=== PATIENT | male | born 1970 | race Caucasian/White ===

== ENCOUNTER 2020-09-14 08:07 | Outpatient (REF) | payer OTHER, SELFPAY ==
[2020-09-14 10:53] LABS: MANUAL DIFF FLAG NO
[2020-09-14 10:57] LABS: Basophils Percent Auto 0.4 % (0-2); Eosinophils Absolute Auto 0.1 X10*3/uL (0.0-0.4); Hematocrit 45.3 % (42-52); Hemoglobin 15.6 g/dl (14.0-18.0); Imm Gran Abs Auto 0.02 X10*3/uL (0.00-0.03); Imm Gran Pct Auto 0.3 % (0.0-0.4); Lymphocytes Absolute Auto 1.8 X10*3/uL (1.2-4.9); Lymphocytes Percent Auto 24.6 % (20-40); Mean Corpuscular HGB Conc 34.4 g/dl (31.0-36.0); Mean Corpuscular Hemoglobin 30.1 pg (27.0-33.0); Mean Corpuscular Volume 87.5 fL (80-98); Monocytes Absolute Auto 0.6 X10*3/uL (0.1-1.2); Monocytes Percent Auto 8.3 % (2-11); Neutrophils Absolute Auto 4.7 X10*3/uL (2.0-8.3); Neutrophils Percent Auto 65.4 % (45-73); Platelet Count 146 X10*3/uL (160-400); Red Blood Count 5.18 X10*6/uL (4.60-5.80); Red Cell Distribution Width 12.4 % (11.0-16.0); White Blood Count 7.1 X10*3/uL (4.8-10.8)
[2020-09-14 11:39] LABS: Alanine Aminotransferase 27 U/L (0-40); Albumin Level 4.5 g/dL (3.5-5.0); Alkaline Phosphatase 58 U/L (39-117); Anion Gap 13 (12-20); Aspartate Amino Transferase 21 U/L (5-37); Bilirubin Total 0.6 mg/dL (0.0-1.0); Blood Urea Nitrogen 12 mg/dL (9-16); Calcium 9.5 mg/dL (8.4-10.2); Carbon Dioxide 29 mmol/L (22-29); Chloride 105 mmol/L (96-108); Cholesterol 223 mg/dL; Estimated Glomerular Filt Rate > 60; Glucose Random 95 mg/dL (60-115); HDL Cholesterol 43 mg/dL; LDL Cholesterol Calculated 137 mg/dl; Potassium 4.4 mmol/L (3.3-5.1); Sodium 143 mmol/L (135-145); Total Protein 7.2 g/dL (6.5-8.0); Triglycerides 216 mg/dL
[2020-09-14 11:53] LABS: Thyroid Stimulating Hormone 3.73 uIU/mL (0.32-4.0)
[2020-09-14 12:22] LABS: Folate 8.8 ng/mL (> or = 4.0); Vitamin B12 551 pg/mL (200-900)
== END 2020-09-14 08:08 | disposition home or self-care (01) ==
LOC: HO.WFDLDS 08:07
PROVIDERS: PCP Internal Medicine; Visit Provider Internal Medicine
DX: E78.00 Pure hypercholesterolemia, unspecified (principal)
CPT/HCPCS: 36415; 80053; 80061; 82607; 82746; 84439; 84443; 85025

== ENCOUNTER 2020-10-10 18:20 | Emergency (ER) | payer OTHER, SELFPAY ==
[2020-10-10 19:21] VITALS: BP 133/86; PULSE 67; RESP 18; TEMP 36.1; O2SAT 100; BMI 25.8
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
== END 2020-10-10 20:54 | disposition home or self-care (01) ==
PROVIDERS: Emergency Provider Emergency Medicine Emergency Medical Services; PCP Internal Medicine
DX: S13.4XXA Sprain of ligaments of cervical spine, initial encounter (principal); S39.012A Strain of muscle, fascia and tendon of lower back, initial encounter; M54.2 Cervicalgia; X58.XXXA Exposure to other specified factors, initial encounter; Y93.9 Activity, unspecified; Y92.410 Unspecified street and highway as the place of occurrence of the external cause; Y99.9 Unspecified external cause status; Z79.899 Other long term (current) drug therapy
CPT/HCPCS: 99284

== ENCOUNTER 2020-12-18 09:00 | Outpatient (RCR) | payer OTHER, SELFPAY | END 2021-09-13 15:04 | disposition home or self-care (01) | LOC: HO.PTWFD 09:00 | PROVIDERS: PCP Internal Medicine; Visit Provider Internal Medicine | DX: M54.9 Dorsalgia, unspecified (principal) | CPT/HCPCS: 97110; 97140; 97161; 97530; 97535 ==

== ENCOUNTER 2021-01-15 11:43 | Emergency (ER) | payer OTHER, SELFPAY ==
[2021-01-15 12:08] VITALS: BP 123/78; PULSE 76; RESP 16; TEMP 37.1; O2SAT 97; BMI 23.3
--- NOTE | 2021-01-15 14:27 | ED.URI ---
HPI - URI/Sore Throat General Chief Complaint: Upper Respiratory Symptoms Stated Complaint: SINUS Time Seen by Provider: 01/15/21 14:21 Source: patient Mode of arrival: ambulatory Limitations: no limitations History of Present Illness HPI Narrative: vaccinated MD elicited complaint: rhinorrhea and nasal congestion Onset (ago): day(s) (3) Consistency: constant Severity: mild Description of mucous: clear Able to tolerate fluids by mouth: Yes Exacerbating factors: nothing Relieving factors: nothing Associated symptoms: denies other symptoms Treatments prior to arrival: none Related Data Previous Rx's Medication Instructions Recorded cyclobenzaprine 10 mg tablet 10 mg PO TID PRN #10 tab 10/10/20 ibuprofen 600 mg tablet 600 mg PO Q8H PRN #20 tab 10/10/20 lidocaine 5 % topical patch 1 patch TOPICAL DAILY #15 ea 10/10/20 (Lidoderm) fluticasone propionate 50 1 spray INTRANASAL DAILY PRN #16 g 01/15/21 mcg/actuation nasal spray,suspension Allergies Allergy/AdvReac Type Severity Reaction Status Date / Time penicillin G Allergy Unknown rash Verified 10/30/20 10:54 Review of Systems Review of Systems: Constitutional : No Fever, No Chills ENT/Mouth : No sore throat, pos Rhinorrhea Eyes: No Eye Pain, No Swelling, No Redness Cardiovascular : No Chest Pain, No SOB Respiratory : No Cough, No Sputum, No Wheezing Gastrointestinal : No Nausea, No Vomiting Genitourinary : No Dysuria, No Urinary Frequency, No Hematuria, Musculoskeletal : No joint pain, No Myalgias, No Joint Swelling Skin : No Skin Lesions, No rash PMFSH Past Medical History Attestation statement: The following information was validated with the patient. Medical History Asthma Hypercholesterolemia Overweight (BMI 25.0-29.9) Spondylolisthesis at L5-S1 level Thrombocytopenia Surgical History Hx of appendectomy Social History Social History Alcohol intake: former Patient Tobacco Use Status: Former Tobacco user Tobacco use type: Cigarette Second Hand Smoke Exposure: No Advance Directives: No Advance Directives Information Provided: No Physical Exam Vital Signs: Vital Signs: Last Vital Signs Temp 98.8 F 09/06/21 12:08 Pulse 76 01/15/21 12:08 Resp 16 01/15/21 12:08 BP 123/78 01/15/21 12:08 Pulse Ox 97 01/15/21 12:08 Body Mass Index 23.3 Appearance: Alert. Oriented X3. No acute distress. Eyes: Pupils equal, round and reactive to light. ENT: Pharynx normal. Neck: Normal inspection. Neck supple. CVS: Normal heart rate and rhythm. Pulses normal. Respiratory: No respiratory distress. Breath sounds normal. Abdomen: Soft and nontender. Skin: Skin warm and dry. Normal skin color. Normal skin turgor. Extremities: No lower extremity edema. No calf ttp Neuro: Oriented X 3. No motor deficit. No sensory deficit. MDM - URI/Sore Throat MDM Narrative Medical decision making narrative: 50 yo male with URI symptoms and he is vaccinated - not toxic, clear lungs could be allergies vs COVID will test and send home will call if positive Discharge Plan Discharge Clinical Impression: Upper respiratory infection Patient Disposition: Home, Self-Care Instructions: Upper Respiratory Infection (ED) Additional Instructions: return to ED for any worsening symptoms or concerns will call you if COVID is positive Prescriptions: New fluticasone propionate 50 mcg/actuation spray,suspension 1 spray intranasal DAILY PRN (Reason: allergy symptoms) Qty: 16 RF: 0 No Action cyclobenzaprine 10 mg tablet 10 mg PO TID PRN (Reason: muscle spasm) Qty: 10 RF: 0 lidocaine [Lidoderm] 5 % adhesive patch,medicated 1 patch topical DAILY Qty: 15 RF: 0 ibuprofen 600 mg tablet 600 mg PO Q8H PRN (Reason: pain) Qty: 20 RF: 0 Stand Alone Forms: Work/School Release
[2021-01-15 14:55] LABS: COVID-19 Test Negative (Negative); IDNOW Serial# 55D5AD1C
== END 2021-01-15 14:52 | disposition home or self-care (01) ==
PROVIDERS: Emergency Provider Emergency Medicine; PCP Internal Medicine
DX: J06.9 Acute upper respiratory infection, unspecified (principal); Z20.822 Contact with and (suspected) exposure to COVID-19
CPT/HCPCS: 36415; 87635; 99283

== ENCOUNTER 2021-02-26 10:19 | Outpatient (REF) | payer OTHER, SELFPAY ==
--- NOTE | ~2021-02-26 | XR_ITS ---
EXAMINATION: XR CHEST CLINICAL INFORMATION: Unspecified asthma. COMPARISON: Chest radiographs dated 02/28/2009. TECHNIQUE: 2 views of the chest were obtained. FINDINGS: The lungs are clear. The heart and mediastinal structures are unremarkable. XR/XR chest 2V IMPRESSION: No acute cardiopulmonary process.
== END 2021-02-26 10:20 | disposition home or self-care (01) ==
LOC: HO.XRAY 10:19
PROVIDERS: PCP Internal Medicine; Visit Provider Internal Medicine
DX: J45.909 Unspecified asthma, uncomplicated (principal)
CPT/HCPCS: 71046

== ENCOUNTER 2021-03-19 08:00 | Outpatient (RCR) | payer OTHER, SELFPAY | END 2021-05-28 09:37 | disposition home or self-care (01) | LOC: HO.PTWFD 08:00 | PROVIDERS: Visit Provider Internal Medicine | DX: M54.2 Cervicalgia (principal) | CPT/HCPCS: 97110; 97161; 97535 ==

== ENCOUNTER 2021-04-30 14:06 | Outpatient (REF) | payer OTHER, SELFPAY ==
[2021-04-30 15:40] LABS: Influenza A PCR NEGATIVE (Negative); Influenza B PCR NEGATIVE (Negative); Resp Syncy Virus RNA Qual PCR NEGATIVE (Negative); SARS COV2 PCR INHOUSE POSITIVE (Negative)
== END 2021-04-30 14:07 | disposition home or self-care (01) ==
LOC: HO.LNP 14:06
PROVIDERS: Visit Provider Family Medicine
DX: R09.89 Other specified symptoms and signs involving the circulatory and respiratory systems (principal); Z20.822 Contact with and (suspected) exposure to COVID-19
CPT/HCPCS: 0241U

== ENCOUNTER 2022-06-11 12:23 | Outpatient (REF) | payer OTHER, SELFPAY ==
[2022-06-11 13:57] LABS: Appearance Urine Clear; Color Urine Yellow; Glucose Urine UA Negative (Negative); Leukocyte Esterase Urine Negative (Negative); Nitrite Urine Negative (Negative); Specific Gravity - Urine 1.025 (1.005-1.025); Urine Blood Negative (Negative); Urine Ketones Negative (Negative); Urine Protein Negative (Neg-Trace)
[2022-06-11 13:58] LABS: MANUAL DIFF FLAG NO
[2022-06-11 14:05] LABS: Basophils Percent Auto 0.6 % (0-2); Eosinophils Absolute Auto 0.1 X10*3/uL (0.0-0.4); Hematocrit 42.3 % (42.0-52.0); Hemoglobin 14.7 g/dl (14.0-18.0); Imm Gran Abs Auto 0.02 X10*3/uL (0.00-0.03); Imm Gran Pct Auto 0.3 % (0.0-0.4); Lymphocytes Absolute Auto 1.8 X10*3/uL (1.2-4.9); Lymphocytes Percent Auto 24.4 % (20-40); Mean Corpuscular HGB Conc 34.8 g/dl (31.0-36.0); Mean Corpuscular Hemoglobin 29.6 pg (27.0-33.0); Mean Corpuscular Volume 85.1 fL (80.0-98.0); Mean Platelet Volume 11.5 fL (9.4-12.4); Monocytes Absolute Auto 0.4 X10*3/uL (0.1-1.2); Monocytes Percent Auto 5.3 % (2-11); Neutrophils Absolute Auto 4.9 x10*3/uL (2.0-8.3); Neutrophils Percent Auto 68.4 % (45-73); Platelet Count 158 X10*3/uL (160-400); Red Blood Count 4.97 X10*6/uL (4.60-5.80); White Blood Count 7.2 X10*3/uL (4.8-10.8)
[2022-06-11 14:33] LABS: Alanine Aminotransferase 35 U/L (0-40); Albumin Level 4.2 g/dL (3.5-5.0); Alkaline Phosphatase 59 U/L (39-117); Anion Gap 10 (12-20); Aspartate Amino Transferase 26 U/L (5-37); Bilirubin Total 0.8 mg/dL (0.0-1.0); Blood Urea Nitrogen 15 mg/dL (9-16); Calcium 9.3 mg/dL (8.4-10.2); Carbon Dioxide 28 mmol/L (22-29); Chloride 108 mmol/L (96-108); Cholesterol 172 mg/dL; Estimated Glomerular Filt Rate > 60; Glucose Random 101 mg/dL (60-115); HDL Cholesterol 35 mg/dL; LDL Cholesterol Calculated 104 mg/dl; Potassium 4.6 mmol/L (3.3-5.1); Sodium 141 mmol/L (135-145); Total Protein 6.7 g/dL (6.5-8.0); Triglycerides 166 mg/dL
[2022-06-11 15:03] LABS: Folate 8.7 ng/mL (> or = 4.0); Free T4 (Free Thyroxine) 0.72 ng/dL (0.71-1.85); Thyroid Stimulating Hormone 2.28 uIU/mL (0.32-4.0); Vitamin B12 628 pg/mL (200-900)
== END 2022-06-11 12:24 | disposition home or self-care (01) ==
LOC: HO.WFDLDS 12:23
PROVIDERS: Visit Provider Internal Medicine
DX: E78.00 Pure hypercholesterolemia, unspecified (principal); M43.17 Spondylolisthesis, lumbosacral region
CPT/HCPCS: 36415; 80053; 80061; 81003; 82607; 82746; 84153; 84439; 84443; 85025

== ENCOUNTER 2023-01-24 15:22 | Outpatient (AMB) | payer OTHER, SELFPAY ==
[2023-01-24 15:24] VITALS: BP 124/76; PULSE 75; O2SAT 98; BMI 27.0
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
== END 2023-01-24 16:07 | disposition home or self-care (01) ==
PROVIDERS: PCP Internal Medicine; Visit Provider Internal Medicine
DX: M43.17 Spondylolisthesis, lumbosacral region (principal); M19.019 Primary osteoarthritis, unspecified shoulder; F32.9 Major depressive disorder, single episode, unspecified; E66.3 Overweight; E78.00 Pure hypercholesterolemia, unspecified
CPT/HCPCS: 99214

== ENCOUNTER 2023-05-16 14:28 | Outpatient (AMB) | payer OTHER, SELFPAY ==
--- NOTE | 2023-05-16 14:28 | MHC.PC.OV ---
Intake Visit Reasons: Pos. COVID Allergies penicillin G Allergy (Unknown, Verified 05/16/23 14:29) rash Medication List - Last Reconciled 05/16/23 by Víctor Willingham MD albuterol sulfate 90 mcg/actuation (ProAir HFA) 2 puffs inhalation QID PRN cyclobenzaprine 10 mg PO Q12H PRN duloxetine 30 mg PO DAILY fluticasone propionate 50 mcg/actuation 1 spray intranasal DAILY PRN gabapentin 100 mg PO BEDTIME ibuprofen 600 mg PO Q8H PRN lidocaine 5% (Lidoderm) 1 patch topical DAILY nirmatrelvir-ritonavir 300 mg (150 mg x 2)-100 mg (Paxlovid) take TWO 150 mg tablets of nirmatrelvir with ONE 100 mg tablet of ritonavir twice daily for 5 days PO Tobacco use date assessed: 05/16/23 Dental Screening Dental Screen Date: 05/16/23 Did you have a dental visit in the last 12 months?: Yes Did you have a dental problem in the last 6 months where you did not have access to dental care?: No Was dental information given to patient?: Patient has dentist HPI Pos. COVID HPI Details 53-year-old overweight male with hypercholesterolemia history of depression glenohumeral arthritis chronic low back pain calling in for recent COVID-19 infection., myalgia, HAchills mild , sore throat, coughing PFSH Medical History Overweight (BMI 25.0-29.9) Asthma Spondylolisthesis at L5-S1 level Thrombocytopenia Hypercholesterolemia Surgical History Hx of appendectomy Family History Father Substance use disorder Social History Housing: Apartment Alcohol intake: former Patient Tobacco Use Status: Former Tobacco user Tobacco use type: Cigarette e-Cigarette/Vaping Use: Never Used Second Hand Smoke Exposure: No service: No Current occupational status: employed Current occupational exposures/hazards: No Cognitive needs: No Hearing needs: No Vision needs: No Questionnaire PHQ-9 Over the last 2 weeks, how often have you been bothered by any of the following problems? 1. Little interest or pleasure in doing things: not at all 2. Feeling down, depressed, or hopeless: not at all 3. Trouble falling or staying asleep, or sleeping too much: not at all 4. Feeling tired or having little energy: not at all 5. Poor appetite or overeating: not at all 6. Feeling bad about yourself - or that you are a failure or have let yourself or your family down: not at all 7. Trouble concentrating on things, such as reading the newspaper or watching television: not at all 8. Moving or speaking so slowly that other people could have noticed. Or the opposite - being so fidgety or restless that you have been moving around a lot more than usual: not at all 9. Thoughts that you would be better off or of hurting yourself in some way: not at all Total score: 0 Depression Screening Interpretation: Negative Depression Screening Done: Yes Source: Developed by Drs. Gold Rojas, Andra Odom, Trey Roach and colleagues, with an educational ju from [employer]. Thrive Questionnaire Date Thrive assessed: 05/16/23 I am a: Patient What is your living situation today?: I have a steady place to live Within the past 12 months, did the food you bought not last and you didn't have the money to get more?: Never true Within the past 12 months, did you worry whether your food would run out before you got money to buy more?: Never true Do you have trouble paying for medicines?: No Do you have trouble getting transportation to medical appointments?: No Do you have trouble paying your heating and electricity bill?: No Do you have trouble taking care of your child, family member or friend?: No Do you have trouble with day-to-day activities such as bathing, preparing meals, shopping, managing finances, etc.?: No Are you currently unemployed and looking for a job?: No Are you interested in more education?: No Currently or been in a relationship where the following occur: no concerns reported AUDIT C Alcohol Use Questionnaire (AUDIT-C) 1. How often do you have a drink containing alcohol?: Never Total Score: 0 ARLIN-7 AMB Questionnaire ARLIN-7 Date ARLIN - 7 assessed: 05/16/23 Feeling nervous, anxious, or on edge: 0 = Not at all Not being able to stop or control worryin = Not at all Worrying too much about different things: 0 = Not at all Trouble relaxin = Not at all Being so restless that it is hard to sit still: 0 = Not at all Becoming easily annoyed or irritable: 0 = Not at all Feeling afraid as if something awful might happen: 0 = Not at all Total ARLIN-7 score (0-4 normal; 5-9 mild; 10-14 moderate; 15-21 severe): 0 Source: Developed by Drs. Gold Rojas, Andra Odom, Trey Roach and colleagues, with an educational ju from [employer]. Physical exam (Primary Care) Tobacco/Smoking Status: Tobacco use Status Tobacco use date assessed 05/16/23 05/16/23 14:30 Patient Tobacco Use Status Former Tobacco user 05/16/23 14:30 Tobacco use type Cigarette 05/16/23 14:30 e-Cigarette/Vaping Use Never Used 05/16/23 14:30 PHQ-9: PHQ-9 Score PHQ-9: Total score 0 05/16/23 14:30 Depression Screening Interpretation: Negative Thrive Assessment: Date of Thrive Assessment Date Thrive assessed 05/16/23 05/16/23 14:30 Currently or been in a relationship where the following occur: no concerns reported Telehealth Telehealth Location of provider rendering services: practice address Location of patient: address on file Patient Identification confirmed using: Name, : Yes Telehealth method: video (Iphone) Patient verbally consented to treatment: Yes Patient verbally consented to billing insurance company: Yes Patient informed of any privacy concerns related to visit: Yes Minutes spent on Phone/Video with Pt.: 15 Assessment and Plan Assessment & Plan (1) COVID-19 virus infection: Comment: 05/15/2023 Code(s): U07.1 - COVID-19 Plan: Antiviral sent in advised to increase oral fluids Cepacol lozenges for sore throat and if the cough gets worse to call and we can give some cough medication. Delsym dry cough [id number]. Also for fever take Tylenol. Did discuss patient quarantine 5 days and may go out after but has to mask up for 5 more days Medications: New nirmatrelvir-ritonavir 300 mg (150 mg x 2)-100 mg (Paxlovid) take TWO 150 mg tablets of nirmatrelvir with ONE 100 mg tablet of ritonavir twice daily for 5 days PO 30 ea 0RF U07.1 - COVID-19 Coding Level of Care Code Tele Est Pt Level 3 (26742) Diagnoses COVID-19 virus infection U07.1
== END 2023-05-16 17:36 | disposition home or self-care (01) ==
LOC: HO.HMGH 14:28
PROVIDERS: PCP Internal Medicine; Visit Provider Internal Medicine
DX: U07.1 COVID-19 (principal)
CPT/HCPCS: 99213

== ENCOUNTER 2023-06-30 12:32 | Outpatient (AMB) | payer OTHER, SELFPAY ==
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
[2023-06-30 12:35] VITALS: BP 130/74; PULSE 71; O2SAT 99; BMI 27.3
== END 2023-06-30 13:03 | disposition home or self-care (01) ==
PROVIDERS: Visit Provider Internal Medicine
DX: Z00.00 Encounter for general adult medical examination without abnormal findings (principal); R73.01 Impaired fasting glucose; E66.3 Overweight; E78.00 Pure hypercholesterolemia, unspecified; J45.909 Unspecified asthma, uncomplicated; F32.9 Major depressive disorder, single episode, unspecified; M25.552 Pain in left hip; M79.605 Pain in left leg; M43.17 Spondylolisthesis, lumbosacral region
CPT/HCPCS: 99396

== ENCOUNTER 2023-06-30 13:13 | Outpatient (REF) | payer OTHER, SELFPAY ==
--- NOTE | ~2023-06-30 | XR_ITS ---
EXAMINATION: XR LUMBAR SPINE XR HIP, LEFT CLINICAL INFORMATION: Pain in left leg, pain in left hip. COMPARISON: None available. TECHNIQUE: Three views of the lumbar spine. Two views of the left hip. FINDINGS: LUMBAR SPINE: Surgical clips in the right mid abdomen. Degenerative changes with hypertrophic change in the bilateral sacroiliac joints. Facet arthritis in lower lumbar spine. Multilevel lumbar spondylosis. Moderate degenerative changes with loss of disc space height at L5-S1. Grade 1 anterolisthesis of L5 on S1 with spondylolysis. Degenerative changes in the imaged lower thoracic spine. LEFT HIP: Mild degenerative changes left hip with joint space narrowing and hypertrophic change. XR/XR hip LT min 2V IMPRESSION: 1. Moderate degenerative changes at L5-S1 with grade 1 anterolisthesis and spondylolysis. 2. Degenerative changes bilateral sacroiliac joints. 3. Mild degenerative changes in the left hip. CT scan recommended if there is clinical concern for fracture or other pathology.
--- NOTE | ~2023-06-30 | XR_ITS ---
EXAMINATION: XR LUMBAR SPINE XR HIP, LEFT CLINICAL INFORMATION: Pain in left leg, pain in left hip. COMPARISON: None available. TECHNIQUE: Three views of the lumbar spine. Two views of the left hip. FINDINGS: LUMBAR SPINE: Surgical clips in the right mid abdomen. Degenerative changes with hypertrophic change in the bilateral sacroiliac joints. Facet arthritis in lower lumbar spine. Multilevel lumbar spondylosis. Moderate degenerative changes with loss of disc space height at L5-S1. Grade 1 anterolisthesis of L5 on S1 with spondylolysis. Degenerative changes in the imaged lower thoracic spine. LEFT HIP: Mild degenerative changes left hip with joint space narrowing and hypertrophic change. XR/XR lumbar spine 2-3V IMPRESSION: 1. Moderate degenerative changes at L5-S1 with grade 1 anterolisthesis and spondylolysis. 2. Degenerative changes bilateral sacroiliac joints. 3. Mild degenerative changes in the left hip. CT scan recommended if there is clinical concern for fracture or other pathology.
== END 2023-06-30 13:14 | disposition home or self-care (01) ==
LOC: HO.XRAY 13:13
PROVIDERS: PCP Internal Medicine; Visit Provider Internal Medicine
DX: M25.552 Pain in left hip (principal); M79.605 Pain in left leg
CPT/HCPCS: 72100; 73502

== ENCOUNTER 2023-09-22 11:03 | Outpatient (REF) | payer OTHER, SELFPAY ==
[2023-09-22 14:28] LABS: MANUAL DIFF FLAG NO
[2023-09-22 14:44] LABS: Basophils Percent Auto 0.8 % (0-2); Eosinophils Percent Auto 0.8 % (0-4); Imm Gran Abs Auto 0.01 X10*3/uL (0.00-0.03); Imm Gran Pct Auto 0.2 % (0.0-0.4); Lymphocytes Percent Auto 19.9 % (20-40); Mean Corpuscular HGB Conc 34.9 g/dl (31.0-36.0); Mean Corpuscular Hemoglobin 29.9 pg (27.0-33.0); Mean Corpuscular Volume 85.7 fL (80.0-98.0); Mean Platelet Volume 11.4 fL (9.4-12.4); Monocytes Absolute Auto 0.3 X10*3/uL (0.1-1.2); Monocytes Percent Auto 5.6 % (2-11); Neutrophils Absolute Auto 3.7 x10*3/uL (2.0-8.3); Neutrophils Percent Auto 72.7 % (45-73); Platelet Count 144 X10*3/uL (160-400); Red Blood Count 5.02 X10*6/uL (4.60-5.80)
[2023-09-22 15:00] LABS: Estimated Average Glucose 105 mg/dL; Hemoglobin A1c % 5.3 % (<6.0)
[2023-09-22 15:02] LABS: Alanine Aminotransferase 25 U/L (0-40); Albumin Level 4.3 g/dL (3.5-5.0); Alkaline Phosphatase 50 U/L (39-117); Anion Gap 14 (12-20); Aspartate Amino Transferase 24 U/L (5-37); Bilirubin Total 0.4 mg/dL (0.0-1.0); Blood Urea Nitrogen 11 mg/dL (9-16); Calcium 9.6 mg/dL (8.4-10.2); Carbon Dioxide 25 mmol/L (22-29); Chloride 107 mmol/L (96-108); Cholesterol 197 mg/dL (<200); Estimated Glomerular Filt Rate > 60; Glucose Random 108 mg/dL (60-115); HDL Cholesterol 43 mg/dL (>40); LDL Cholesterol Calculated 107 mg/dL (<100); Sodium 142 mmol/L (135-145); Total Protein 7.2 g/dL (6.5-8.0); Triglycerides 235 mg/dL (<150)
[2023-09-22 15:19] LABS: Free T4 (Free Thyroxine) 0.71 ng/dL (0.71-1.85); Thyroid Stimulating Hormone 2.39 uIU/mL (0.32-4.0)
[2023-09-22 15:28] LABS: Folate 7.8 ng/mL (> or = 4.0); Prostate Specific Antigen Scr 1.41 ng/mL (<0.05-4.0); Vitamin B12 767 pg/mL (200-900)
== END 2023-09-22 11:04 | disposition home or self-care (01) ==
LOC: HO.WFDLDS 11:03
PROVIDERS: Visit Provider Internal Medicine
DX: E78.00 Pure hypercholesterolemia, unspecified (principal); R73.01 Impaired fasting glucose
CPT/HCPCS: 36415; 80053; 80061; 82607; 82746; 83036; 84153; 84439; 84443; 85025

== ENCOUNTER 2023-09-24 11:04 | Outpatient (REF) | payer OTHER, SELFPAY ==
[2023-09-24 14:29] LABS: Appearance Urine Turbid; Color Urine Dark Yellow; Glucose Urine UA Negative (Negative); Leukocyte Esterase Urine Negative (Negative); Nitrite Urine Negative (Negative); Specific Gravity - Urine >= 1.030 (1.005-1.025); Urine Blood Negative (Negative); Urine Ketones Trace mg/dL (Negative); Urine Protein Negative (Neg-Trace)
== END 2023-09-24 11:05 | disposition home or self-care (01) ==
LOC: HO.WFDLDS 11:04
PROVIDERS: Visit Provider Internal Medicine
DX: R30.0 Dysuria (principal)
CPT/HCPCS: 81003

== ENCOUNTER 2023-09-29 14:18 | Outpatient (AMB) | payer OTHER, SELFPAY ==
[2023-09-29 14:20] VITALS: BP 116/92; PULSE 94; O2SAT 97; BMI 25.2
--- NOTE | 2023-09-29 14:20 | MHC.PC.OV ---
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 Had some back pain and an x-ray requested.. Moderate degenerative changes L5-S1 with grade 1 anterolisthesis and spondylosis degenerative changes in bilateral sacroiliac joints mild degenerative change in the left hip. [facility] Medical History Overweight (BMI 25.0-29.9) Asthma Spondylolisthesis at L5-S1 level Thrombocytopenia Hypercholesterolemia Surgical History Hx of appendectomy Family History Father Substance use disorder Social History Housing: Apartment Alcohol intake: former Patient Tobacco Use Status: Never used Tobacco e-Cigarette/Vaping Use: Never Used Second Hand Smoke Exposure: No service: No Current occupational status: employed Current occupational exposures/hazards: No Cognitive needs: No Hearing needs: No Vision needs: No Questionnaire PHQ-9 Over the last 2 weeks, how often have you been bothered by any of the following problems? 1. Little interest or pleasure in doing things: not at all 2. Feeling down, depressed, or hopeless: not at all 3. Trouble falling or staying asleep, or sleeping too much: not at all 4. Feeling tired or having little energy: not at all 5. Poor appetite or overeating: not at all 6. Feeling bad about yourself - or that you are a failure or have let yourself or your family down: not at all 7. Trouble concentrating on things, such as reading the newspaper or watching television: not at all 8. Moving or speaking so slowly that other people could have noticed. Or the opposite - being so fidgety or restless that you have been moving around a lot more than usual: not at all 9. Thoughts that you would be better off or of hurting yourself in some way: not at all Total score: 0 Depression Screening Interpretation: Negative Depression Screening Done: Yes Source: Developed by Drs. Gold Rojas, Andra Odom, Trey Roach and colleagues, with an educational ju from [employer]. Thrive Questionnaire Date Thrive assessed: 05/16/23 I am a: Patient What is your living situation today?: I have a steady place to live Within the past 12 months, did the food you bought not last and you didn't have the money to get more?: Never true Within the past 12 months, did you worry whether your food would run out before you got money to buy more?: Never true Do you have trouble paying for medicines?: No Do you have trouble getting transportation to medical appointments?: No Do you have trouble paying your heating and electricity bill?: No Do you have trouble taking care of your child, family member or friend?: No Do you have trouble with day-to-day activities such as bathing, preparing meals, shopping, managing finances, etc.?: No Are you currently unemployed and looking for a job?: No Are you interested in more education?: No Please select the resources that you would like help with: None Currently or been in a relationship where the following occur: no concerns reported THRIVE Score: 0 AUDIT C Alcohol Use Questionnaire (AUDIT-C) 1. How often do you have a drink containing alcohol?: Never 3. How often do you have six or more drinks on one occasion?: Never Total Score: 0 ARLIN-7 AMB Questionnaire ARLIN-7 Date ARLIN - 7 assessed: 05/16/23 Source: Developed by Andra Vaughn. Lei, Trey Roach and colleagues, with an educational ju from [employer]. Physical exam (Primary Care) Vital Signs: Last Vital Signs Pulse 94 09/29/23 14:20 BP 116/92 H 09/29/23 14:20 Pulse Ox 97 09/29/23 14:20 Oxygen Delivery Method Room Air 09/29/23 14:20 BMI result Body Mass Index 25.2 Tobacco/Smoking Status: Tobacco use Status Tobacco use date assessed 09/29/23 09/29/23 14:21 Patient Tobacco Use Status Never used Tobacco 09/29/23 14:21 Tobacco use type 06/30/23 13:05 e-Cigarette/Vaping Use Never Used 09/29/23 14:21 PHQ-9: PHQ-9 Score PHQ-9: Total score 0 09/29/23 14:22 Depression Screening Interpretation: Negative Thrive Assessment: Date of Thrive Assessment Date Thrive assessed 05/16/23 09/29/23 14:21 Currently or been in a relationship where the following occur: no concerns reported Const General: alert; No acute distress Eyes Conjunctivae: conjunctivae normal Resp Auscultation: clear to auscultation bilaterally Cardio Rate: regular rate Rhythm: regular rhythm GI Inspection: Yes normal to inspection Extrem General: Yes normal to inspection and No edema Assessment and Plan Assessment & Plan (1) Lumbar degenerative disc disease: Code(s): M51.36 - Other intervertebral disc degeneration, lumbar region Plan: Discussed about the results of the x-ray. Noted weight loss which is good, keep active. (2) Hypercholesterolemia: Code(s): E78.00 - Pure hypercholesterolemia, unspecified Plan: Avoid fried foods, chicken skin, eggs, butter margarine, pastries and meat. Be it pork or beef they have a lot of cholesterol LDL goal of less than 130 and triglyceride of less than 150. Noted to have elevated triglyceride (3) Asthma: Code(s): J45.909 - Unspecified asthma, uncomplicated Plan: Continue with the inhaler as needed (4) Impaired fasting blood sugar: Code(s): R73.01 - Impaired fasting glucose Plan: Decrease the amount of carbohydrate intake, pasta, bread, rice and potatoes are all sugar and that is aside from all the sweet stuff, remember that fruits are good but they are Sweet also. Coding Level of Care Code Est Pt Level 4 (71512) Diagnoses Lumbar degenerative disc disease M51.36 Hypercholesterolemia E78.00 Asthma J45.909 Impaired fasting blood sugar R73.01
[2023-09-29 14:49] VITALS: BP 120/80
== END 2023-09-29 15:00 | disposition home or self-care (01) ==
PROVIDERS: PCP Internal Medicine; Visit Provider Internal Medicine
DX: M51.36 Other intervertebral disc degeneration, lumbar region (principal); E78.00 Pure hypercholesterolemia, unspecified; J45.909 Unspecified asthma, uncomplicated; R73.01 Impaired fasting glucose
CPT/HCPCS: 99214

== ENCOUNTER 2024-08-09 10:11 | Outpatient (AMB) | payer OTHER, SELFPAY ==
[2024-08-09 10:14] VITALS: BP 134/90; PULSE 66; TEMP 36.3; O2SAT 98; BMI 26.6
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
== END 2024-08-09 11:11 | disposition home or self-care (01) ==
LOC: HO.HMCH 10:12
PROVIDERS: PCP Internal Medicine; Visit Provider Internal Medicine
DX: Z00.00 Encounter for general adult medical examination without abnormal findings (principal); E78.00 Pure hypercholesterolemia, unspecified; E66.3 Overweight; M43.17 Spondylolisthesis, lumbosacral region; J45.909 Unspecified asthma, uncomplicated; Z53.20 Procedure and treatment not carried out because of patient's decision for unspecified reasons; R73.01 Impaired fasting glucose; F32.9 Major depressive disorder, single episode, unspecified; R03.0 Elevated blood-pressure reading, without diagnosis of hypertension; M65.322 Trigger finger, left index finger; M65.312 Trigger thumb, left thumb; M65.332 Trigger finger, left middle finger; M65.342 Trigger finger, left ring finger; M65.352 Trigger finger, left little finger

== ENCOUNTER → 2024-08-09 10:11 | Outpatient (BNVA) | payer OTHER, SELFPAY | PROVIDERS: PCP Internal Medicine; Visit Provider Internal Medicine | DX: Z00.00 Encounter for general adult medical examination without abnormal findings (principal); E78.00 Pure hypercholesterolemia, unspecified; E66.3 Overweight; M43.17 Spondylolisthesis, lumbosacral region; J45.909 Unspecified asthma, uncomplicated; R73.01 Impaired fasting glucose; F32.9 Major depressive disorder, single episode, unspecified; R03.0 Elevated blood-pressure reading, without diagnosis of hypertension; M65.322 Trigger finger, left index finger; M65.312 Trigger thumb, left thumb; M65.332 Trigger finger, left middle finger; M65.342 Trigger finger, left ring finger; M65.352 Trigger finger, left little finger | CPT/HCPCS: 96127; 99396 ==

== ENCOUNTER 2024-09-22 09:39 | Outpatient (REF) | payer OTHER, SELFPAY ==
--- OUTSIDE RECORDS SUMMARY | 2024-09-22 10:17 | XMS_ITS | Clinical Summary ---
Author Organization [facility], Address [address] [place] [address] Phone Care Team Providers Care Medical Diagnostic Radiographer Name Role Phone Víctor Willingham MD Primary Care Provider [phone] Allergies Active Allergy Reactions Criticality Noted Date [...] (1 of 3 - 19+ 3-dose series) 04/22 Colorectal Cancer Screening: Annual FOBT 2020 Colorectal Cancer Screening: Colonoscopy 2020 Colorectal Cancer Screening: Sigmoidoscopy 2020 Pneumococcal Vaccine: 50+ Years (1 of 1 - PCV) 021 Influenza Vaccine (Season Ended) 2025 Insurance [employer] Insurance [facility] [employer] Care Teams Medical Diagnostic Radiographer Relationship Specialty Start Date End Date Víctor Willingham MD [facility] [address] [place], [place] PCP - General Internal Medicine 03/22/22
[2024-09-22 10:59] LABS: MANUAL DIFF FLAG NO
[2024-09-22 11:05] LABS: Appearance Urine Clear; Color Urine Yellow; Glucose Urine UA Negative (Negative); Leukocyte Esterase Urine Negative (Negative); Nitrite Urine Negative (Negative); PH 5.5 (5.0-9.0); Specific Gravity - Urine >= 1.030 (1.005-1.025); Urine Blood Negative (Negative); Urine Ketones Negative (Negative); Urine Protein Negative (Neg-Trace)
[2024-09-22 11:06] LABS: Basophils Percent Auto 0.5 % (0-2); Eosinophils Absolute Auto 0.1 X10*3/uL (0.0-0.4); Eosinophils Percent Auto 1.4 % (0-4); Hemoglobin 14.6 g/dl (14.0-18.0); Imm Gran Abs Auto 0.03 X10*3/uL (0.00-0.03); Imm Gran Pct Auto 0.5 % (0.0-0.4); Lymphocytes Absolute Auto 2.1 X10*3/uL (1.2-4.9); Lymphocytes Percent Auto 32.7 % (20-40); Mean Corpuscular HGB Conc 35.6 g/dl (31.0-36.0); Mean Corpuscular Hemoglobin 30.1 pg (27.0-33.0); Mean Corpuscular Volume 84.5 fL (80.0-98.0); Mean Platelet Volume 11.4 fL (9.4-12.4); Monocytes Absolute Auto 0.3 X10*3/uL (0.1-1.2); Monocytes Percent Auto 5.4 % (2-11); Neutrophils Absolute Auto 3.7 x10*3/uL (2.0-8.3); Neutrophils Percent Auto 59.5 % (45-73); Platelet Count 147 X10*3/uL (160-400); Red Blood Count 4.85 X10*6/uL (4.60-5.80); Red Cell Distribution Width 13.2 % (11.0-16.0); White Blood Count 6.3 X10*3/uL (4.8-10.8)
[2024-09-22 11:13] LABS: Estimated Average Glucose 103 mg/dL; Hemoglobin A1C 128.5716 umol/L; Hemoglobin A1c % 5.2 % (<6.0); Total Hemoglobin (HGBA1C) 3797.1464 umol/L
[2024-09-22 11:40] LABS: Alanine Aminotransferase 36 U/L (0-40); Albumin Level 4.2 g/dL (3.5-5.0); Alkaline Phosphatase 58 U/L (39-117); Anion Gap 12 (12-20); Aspartate Amino Transferase 46 U/L (5-37); Bilirubin Total 0.6 mg/dL (0.0-1.0); Blood Urea Nitrogen 14 mg/dL (9-16); Calcium 8.8 mg/dL (8.4-10.2); Carbon Dioxide 25 mmol/L (22-29); Chloride 108 mmol/L (96-108); Cholesterol 234 mg/dL (<200); Estimated Glomerular Filt Rate > 60; Glucose Random 119 mg/dL (60-115); HDL Cholesterol 34 mg/dL (>40); LDL Cholesterol Calculated 121 mg/dL (<100); Sodium 141 mmol/L (135-145); Triglycerides 395 mg/dL (<150)
[2024-09-22 11:54] LABS: Folate 9.3 ng/mL (> or = 4.0); Prostate Specific Antigen Scr 1.55 ng/mL (<0.05-4.0); Vitamin B12 754 pg/mL (200-900)
[2024-09-22 11:58] LABS: Free T4 (Free Thyroxine) 0.82 ng/dL (0.71-1.85)
== END 2024-09-22 09:40 | disposition home or self-care (01) ==
LOC: HO.WFDLDS 09:39
PROVIDERS: Visit Provider Internal Medicine
DX: R03.0 Elevated blood-pressure reading, without diagnosis of hypertension (principal); E78.00 Pure hypercholesterolemia, unspecified; R39.9 Unspecified symptoms and signs involving the genitourinary system
CPT/HCPCS: 36415; 80053; 80061; 81003; 82607; 82746; 83036; 84153; 84439; 84443; 85025

== ENCOUNTER 2024-09-23 14:50 | Outpatient (AMB) | payer OTHER, SELFPAY ==
--- OUTSIDE RECORDS SUMMARY | 2024-09-23 15:34 | XMS_ITS | Clinical Summary ---
Author Organization [facility], Address [address] [place] [address] Phone Care Team Providers Care Home Attendant Name Role Phone Víctor Willingham MD Primary Care Provider [phone] Allergies Active Allergy Reactions Criticality Noted Date [...] (Season Ended) 2025 Insurance [employer] Insurance [facility] Healthnet Care Teams Home Attendant Relationship Specialty Start Date End Date Víctor Willingham MD [facility] [address] [place], [place] PCP - General Internal Medicine 03/22/22
[2024-09-23 15:38] VITALS: BP 120/70; PULSE 62; TEMP 36.4; O2SAT 98; BMI 26.5
--- NOTE | 2024-09-23 15:38 | A.OFFPC_ITS ---
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 Accompanied by: Self / Same As Patient Allergies penicillin G Allergy (Unknown, Verified 09/23/24 15:38) rash Tobacco use date assessed: 08/09/24 Dental Screening Dental Screen Date: 08/09/24 [facility] Medical History Overweight (BMI 25.0-29.9) Asthma Spondylolisthesis at L5-S1 level Thrombocytopenia Hypercholesterolemia Surgical History Hx of appendectomy Family History Father Substance use disorder Social History Housing: Apartment Alcohol intake: former Patient Tobacco Use Status: Never used Tobacco Tobacco use type: Cigarette e-Cigarette/Vaping Use: Never Used Second Hand Smoke Exposure: No service: No Current occupational status: employed Current occupational exposures/hazards: No Cognitive needs: No Hearing needs: No Vision needs: No Questionnaire PHQ-9 Over the last 2 weeks, how often have you been bothered by any of the following problems? 1. Little interest or pleasure in doing things: not at all 2. Feeling down, depressed, or hopeless: not at all 3. Trouble falling or staying asleep, or sleeping too much: not at all 4. Feeling tired or having little energy: not at all 5. Poor appetite or overeating: not at all 6. Feeling bad about yourself - or that you are a failure or have let yourself or your family down: not at all 7. Trouble concentrating on things, such as reading the newspaper or watching television: not at all 8. Moving or speaking so slowly that other people could have noticed. Or the opposite - being so fidgety or restless that you have been moving around a lot more than usual: not at all 9. Thoughts that you would be better off or of hurting yourself in some way: not at all Total score: 0 Depression Screening Interpretation: Negative Depression Screening Done: Yes 07452 - PHQ-9 Billing: Yes Source: Developed by Drs. Gold Rojas, Andra Odom, Trey Roach and colleagues, with an educational ju from [employer]. Thrive Questionnaire Date Thrive assessed: 08/09/24 I am a: Patient What is your living situation today?: I choose not to answer this question Within the past 12 months, did the food you bought not last and you didn't have the money to get more?: I choose not to answer this question Within the past 12 months, did you worry whether your food would run out before you got money to buy more?: I choose not to answer this question Do you have trouble paying for medicines?: I choose not to answer this question Do you have trouble getting transportation to medical appointments?: I choose not to answer this question Do you have trouble paying your heating and electricity bill?: I choose not to answer this question Do you have trouble taking care of your child, family member or friend?: I choose not to answer this question Do you have trouble with day-to-day activities such as bathing, preparing meals, shopping, managing finances, etc.?: I choose not to answer this question Are you currently unemployed and looking for a job?: I choose not to answer this question Are you interested in more education?: I choose not to answer this question Please select the resources that you would like help with: None Currently or been in a relationship where the following occur: I choose not to answer THRIVE Score: 0 ARLIN-7 AMB Questionnaire ARLIN-7 Date ARLIN - 7 assessed: 08/09/24 Source: Developed by Drs. Gold Rojas, Andra Odom, Trey Roach and colleagues, with an educational ju from [employer]. Physical exam (Primary Care) Vital Signs: Last Vital Signs Temp 97.5 F 09/23/24 15:38 Pulse 62 09/23/24 15:38 BP 120/70 09/23/24 15:38 Pulse Ox 98 09/23/24 15:38 Oxygen Delivery Method Room Air 09/23/24 15:38 BMI result Body Mass Index 26.5 Tobacco/Smoking Status: Tobacco use Status Tobacco use date assessed 08/09/24 09/23/24 15:39 Patient Tobacco Use Status Never used Tobacco 09/23/24 15:39 Tobacco use type Cigarette 09/23/24 15:39 e-Cigarette/Vaping Use Never Used 09/23/24 15:39 PHQ-9: PHQ-9 Score PHQ-9: Total score 0 09/23/24 16:35 Depression Screening Interpretation: Negative Thrive Assessment: Date of Thrive Assessment Date Thrive assessed 08/09/24 09/23/24 15:39 Currently or been in a relationship where the following occur: I choose not to answer Const General: alert; No acute distress Eyes Conjunctivae: conjunctivae normal Resp Auscultation: clear to auscultation bilaterally Cardio Rate: regular rate Rhythm: regular rhythm GI Other: RLQ tender on deep palpationm , no guarding , no rebound Extrem General: Yes normal to inspection and No edema Coding Level of Care Code Est Pt Level 4 (00080) Complex EM visit Add On G2211 Diagnoses Blood pressure elevated without history of HTN R03.0 Impaired fasting blood sugar R73.01 Hypercholesterolemia E78.00 Overweight (BMI 25.0-29.9) E66.3 LFT elevation R79.89 RLQ abdominal pain R10.31 Additional Codes PHQ-9 - 86887 - PHQ-9 Billing: Yes ([id number]) Assessment & Plan Assessment & Plan (1) Blood pressure elevated without history of HTN: Code(s): R03.0 - Elevated blood-pressure reading, without diagnosis of hypertension Category: Medical Plan: Blood pressure is better (2) Impaired fasting blood sugar: Code(s): R73.01 - Impaired fasting glucose Category: Medical Plan: Decrease the amount of carbohydrate intake, pasta, bread, rice and potatoes are all sugar and that is aside from all the sweet stuff, remember that fruits are good but they are Sweet also. (3) Hypercholesterolemia: Code(s): E78.00 - Pure hypercholesterolemia, unspecified Category: Medical Plan: Avoid fried foods, chicken skin, eggs, butter margarine, pastries and meat. Be it pork or beef they have a lot of cholesterol LDL goal of less than 130 and triglyceride of less than 150 (4) Overweight (BMI 25.0-29.9): Code(s): E66.3 - Overweight Category: Medical Plan: Diet and exercise (5) LFT elevation: Code(s): R79.89 - Other specified abnormal findings of blood chemistry Category: Medical (6) RLQ abdominal pain: Code(s): R10.31 - Right lower quadrant pain Category: Medical Plan History of Present Illness The patient is a 54-year-old male presenting with abdominal pain localized to the right lower quadrant, initiated approximately two weeks ago, exacerbating upon movements such as standing or sitting, and relieved by a recumbent position. This is absent of any urinary issues, suggesting no dysuria or genitourinary manifestations. The patient reported no associated bowel dysfunction, and the discomfort was tentatively attributed to musculoskeletal origins rather than clear intra-abdominal pathology by the patient. Despite lifestyle changes including regular exercise and dietary attention, there has been a persistent rise in cholesterol (234 mg/dL) and triglyceride (395 mg/dL) levels, surpassing recommended thresholds. The patient's efforts at lifestyle modification suggest non-responsive trends potentially linked to familial hyperlipidemia, further aggravated by unexplained liver enzyme elevations. Health Maintenance - Discussed exercise reinforcement to aid in weight management and cardiovascular risk reduction. - Re-addressed dietary management emphasizing decreased intake of fried and fast foods to manage hyperlipidemia. - Recommended repeating liver function tests in 1 month and performing an abdominal ultrasound to investigate elevated liver enzymes. - Emphasized triglyceride control to prevent pancreatitis, encouraging patient adherence to dietary strategies. Social History - Engages in regular exercise at the gym for approximately two hours, regularly. - Awareness of dietary intake; attempts to manage cholesterol through diet despite familial influences. - Denies alcohol consumption which may influence liver enzyme levels. - Evidences spousal support for health maintenance and medical follow-up. Review of Systems - Gastrointestinal: Reports pain upon standing and sitting. - Genitourinary: Denies dysuria or changes in bowel habits. - Musculoskeletal: Reports pain in the right lower quadrant upon specific postural changes. Physical Exam - Gastrointestinal- Tenderness noted in the right lower quadrant upon examination but no overt signs of guarding or rebound tenderness. - Musculoskeletal- No musculoskeletal pain noted on straight leg raises or specifics of localized tenderness. Results - Labs: Elevated total cholesterol (234 mg/dL), elevated triglycerides (395 mg/dL), mildly elevated fasting glucose (119 mg/dL), elevated liver function tests, chronic mild thrombocytopenia. - Urinalysis: Clean without abnormalities. Plan During this visit, I emphasized the management and monitoring of the patient's cholesterol and triglyceride levels through dietary changes and exercise with a follow-up on liver functions in a month to reassess elevated enzyme levels and organize an abdominal ultrasound. I discussed the musculoskeletal nature of the present abdominal discomfort but will reassess should symptoms persist despite initial unimpressive findings on physical examination. I will continue to encourage lifestyle factors while keeping medications on standby, ensuring sensitivity to the familial tendencies of hyperlipidemia. Patient was informed and verbally consented to the use of an ambient scribe for clinic note documentation during this visit. Discussion Notes I discussed with the patient the implications of high cholesterol and triglycerides, emphasizing diet and exercise as pivotal lifestyle adjustments. I highlighted the familial tendencies of such lipid abnormalities, discussing potential medication intervention if values do not improve. I engaged the patient in understanding elevated liver enzymes, considering non-alcoholic factors, and planning for a repeat test and ultrasound for comprehensive evaluation. I consulted on evaluating persistent abdominal pain and reassured through initial findings, giving the patient the option of imaging studies should symptoms persist or worsen. Patient Instructions - Continue routine gym exercises to support cardiovascular health. - Follow a diet low in fried and fast foods to aid in controlling cholesterol levels. - Schedule follow-up laboratory tests, and abdominal ultrasound in one month. - Monitor abdominal pain; seek medical care if intensifies or associated symptoms develop. - Maintain current appointments and discuss any changes with healthcare provider. Orders: Orders US abdomen complete Today R79.89 - Other specified abnormal findings of blood chemistry Complete Blood Count Auto Diff 3 Months R73.01 - Impaired fasting glucose Comprehensive Met. Panel 3 Months R73.01 - Impaired fasting glucose Lipid Panel 3 Months E78.00 - Pure hypercholesterolemia, unspecified, R73.01 - Impaired fasting glucose Hemoglobin A1c 3 Months R73.01 - Impaired fasting glucose Liver Panel Today R79.89 - Other specified abnormal findings of blood chemistry Hepatitis B,C Profile Today R79.89 - Other specified abnormal findings of blood chemistry CT abdomen pelvis wo/w IV con Today R10.31 - Right lower quadrant pain
== END 2024-09-23 16:50 | disposition home or self-care (01) ==
LOC: HO.HMCH 14:50
PROVIDERS: PCP Internal Medicine; Visit Provider Internal Medicine
DX: R03.0 Elevated blood-pressure reading, without diagnosis of hypertension (principal); R73.01 Impaired fasting glucose; E78.00 Pure hypercholesterolemia, unspecified; E66.3 Overweight; R79.89 Other specified abnormal findings of blood chemistry; R10.31 Right lower quadrant pain

== ENCOUNTER → 2024-09-23 14:50 | Outpatient (BNVA) | payer OTHER, SELFPAY | PROVIDERS: PCP Internal Medicine; Visit Provider Internal Medicine | DX: R10.31 Right lower quadrant pain (principal); M25.551 Pain in right hip; R03.0 Elevated blood-pressure reading, without diagnosis of hypertension; R73.01 Impaired fasting glucose; E78.00 Pure hypercholesterolemia, unspecified; E66.3 Overweight; R79.89 Other specified abnormal findings of blood chemistry | CPT/HCPCS: 96127; 99212 ==

== ENCOUNTER 2024-11-15 09:17 | Outpatient (REF) | payer OTHER, SELFPAY ==
--- OUTSIDE RECORDS SUMMARY | 2024-11-15 09:44 | XMS_ITS | Clinical Summary ---
Author Organization [facility], Address [address] [place] [address] Phone Care Team Providers Care Plumber And Tinner Name Role Phone Víctor Willingham MD Primary Care Provider [phone] Allergies Active Allergy Reactions Criticality Noted Date [...] Vaccine (Season Ended) 2025 Insurance [employer] Insurance [facility] Healthnet Care Teams Plumber And Tinner Relationship Specialty Start Date End Date Víctor Willingham MD [facility] [address] [place], [place] PCP - General Internal Medicine 03/22/22
[2024-11-15 13:52] LABS: Alanine Aminotransferase 51 U/L (0-40); Albumin Level 4.4 g/dL (3.5-5.0); Alkaline Phosphatase 53 U/L (39-117); Aspartate Amino Transferase 54 U/L (5-37); Blood Urea Nitrogen 16 mg/dL (9-16); Estimated Glomerular Filt Rate > 60; Total Protein 6.8 g/dL (6.5-8.0)
[2024-11-16 08:31] LABS: HBS Num1 0.00 mIU/mL (0-7.99); HBc Num1 0.24 S/CO (0.00-0.79); HBsAGNum1 0.36 S/CO (0.00-0.99); Hepatitis B Surface Antigen Negative (Negative); ~HepC Num1 0.14 S/CO (0.00-0.79); ~Hepatitis B Surface Antibody NONREACTIVE (Nonreactive); ~Hepatitis C Antibody Nonreactive (Nonreactive)
== END 2024-11-15 09:18 | disposition home or self-care (01) ==
LOC: HO.WFDLDS 09:17
PROVIDERS: Visit Provider Internal Medicine
DX: R79.89 Other specified abnormal findings of blood chemistry (principal); H53.9 Unspecified visual disturbance
CPT/HCPCS: 36415; 80076; 82565; 84520; 86704; 86706; 86803; 87340

== ENCOUNTER 2024-11-24 10:19 | Outpatient (REF) | payer OTHER, SELFPAY ==
--- OUTSIDE RECORDS SUMMARY | 2024-11-24 10:55 | XMS_ITS | Clinical Summary ---
Author Organization [facility], Address [address] [place] [address] Phone Care Team Providers Care Product Manager Medical Device Name Role Phone Víctor Willingham MD Primary Care Provider [phone] Allergies Active Allergy Reactions Criticality Noted Date [...] of 1 - PCV) 021 Influenza Vaccine (#1) 2025 Insurance [employer] Insurance [facility] Healthnet Care Teams Product Manager Medical Device Relationship Specialty Start Date End Date Víctor Willingham MD [facility] INTERNAL [address] [place], [place] PCP - General Internal Medicine 03/22/22
[2024-11-24 14:47] LABS: MANUAL DIFF FLAG NO
[2024-11-24 14:57] LABS: Hematocrit 44.7 % (42.0-52.0); Hemoglobin 15.4 g/dl (14.0-18.0); Imm Gran Abs Auto 0.01 X10*3/uL (0.00-0.03); Imm Gran Pct Auto 0.2 % (0.0-0.4); Lymphocytes Absolute Auto 1.8 X10*3/uL (1.2-4.9); Mean Corpuscular HGB Conc 34.5 g/dl (31.0-36.0); Mean Corpuscular Hemoglobin 29.7 pg (27.0-33.0); Mean Corpuscular Volume 86.1 fL (80.0-98.0); NRBC Abs Auto 0.000 X10*3/uL (0.0-0.012); NRBC Pct Auto 0.0 /100WBC (0.0-0.2); Platelet Count 160 X10*3/uL (160-400); Red Blood Count 5.19 X10*6/uL (4.60-5.80); White Blood Count 6.4 X10*3/uL (4.8-10.8)
[2024-11-24 15:05] LABS: Hemoglobin A1C 137.3723 umol/L; Total Hemoglobin (HGBA1C) 4008.3876 umol/L
[2024-11-24 15:11] LABS: Alanine Aminotransferase 41 U/L (0-40); Albumin Level 4.7 g/dL (3.5-5.0); Alkaline Phosphatase 54 U/L (39-117); Anion Gap 12 (12-20); Aspartate Amino Transferase 38 U/L (5-37); Blood Urea Nitrogen 13 mg/dL (9-16); Calcium 9.3 mg/dL (8.4-10.2); Carbon Dioxide 27 mmol/L (22-29); Chloride 104 mmol/L (96-108); Cholesterol 236 mg/dL (<200); Estimated Glomerular Filt Rate > 60; HDL Cholesterol 47 mg/dL (>40); Potassium 3.8 mmol/L (3.3-5.1); Sodium 139 mmol/L (135-145); Total Protein 7.3 g/dL (6.5-8.0); Triglycerides 176 mg/dL (<150)
== END 2024-11-24 10:20 | disposition home or self-care (01) ==
LOC: HO.WFDLDS 10:19
PROVIDERS: Visit Provider Internal Medicine
DX: E78.00 Pure hypercholesterolemia, unspecified (principal); R73.01 Impaired fasting glucose
CPT/HCPCS: 36415; 80053; 80061; 83036; 85025

== ENCOUNTER 2024-11-29 10:53 | Outpatient (AMB) | payer OTHER, SELFPAY ==
[2024-11-29 11:06] VITALS: BP 122/78; PULSE 77; TEMP 36.2; O2SAT 99; BMI 26.3
--- NOTE | 2024-11-29 11:06 | MHC.PC.OV ---
Vital Signs 11/29/24 11:06 Height 5 ft 6 in Weight 163 lb 4 oz BMI 26.3 BP 122/78 Blood Pressure Location Lt brachial Position Sitting Pulse 77 Pulse Source Pulse Oximeter Temp 97.1 F Temp Source Temporal Artery Scan Pulse Oximetry (%) 99 Oxygen Delivery Method Room Air Intake Visit Reasons: Follow Up Allergies penicillin G Allergy (Unknown, Verified 11/29/24 11:08) rash Medication List - Last Reconciled 11/29/24 by Víctor Willingham MD albuterol sulfate 90 mcg/actuation (ProAir HFA) 2 puffs inhalation QID PRN blood pressure monitor (Blood Pressure Kit) As directed cyclobenzaprine 10 mg PO Q12H PRN duloxetine 30 mg PO DAILY ibuprofen 600 mg PO Q8H PRN Tobacco use date assessed: 11/29/24 Dental Screening Dental Screen Date: 08/09/24 Did you have a dental visit in the last 12 months?: No Did you have a dental problem in the last 6 months where you did not have access to dental care?: No Was dental information given to patient?: Patient declined [facility] Medical History Overweight (BMI 25.0-29.9) Asthma Spondylolisthesis at L5-S1 level Thrombocytopenia Hypercholesterolemia Surgical History Hx of appendectomy Family History Father Substance use disorder Social History Housing: Apartment Alcohol intake: former Patient Tobacco Use Status: Never used Tobacco Tobacco use type: Cigarette e-Cigarette/Vaping Use: Never Used Second Hand Smoke Exposure: No service: No Current occupational status: employed Current occupational exposures/hazards: No Cognitive needs: No Hearing needs: No Vision needs: No Questionnaire PHQ-9 Over the last 2 weeks, how often have you been bothered by any of the following problems? 1. Little interest or pleasure in doing things: not at all 2. Feeling down, depressed, or hopeless: not at all 3. Trouble falling or staying asleep, or sleeping too much: not at all 4. Feeling tired or having little energy: not at all 5. Poor appetite or overeating: not at all 6. Feeling bad about yourself - or that you are a failure or have let yourself or your family down: not at all 7. Trouble concentrating on things, such as reading the newspaper or watching television: not at all 8. Moving or speaking so slowly that other people could have noticed. Or the opposite - being so fidgety or restless that you have been moving around a lot more than usual: not at all 9. Thoughts that you would be better off or of hurting yourself in some way: not at all Total score: 0 Depression Screening Interpretation: Negative Depression Screening Done: Yes Source: Developed by Drs. Gold Rojas, Andra Odom, Trey Roach and colleagues, with an educational ju from [employer]. Thrive Questionnaire Date Thrive assessed: 08/09/24 I am a: Patient What is your living situation today?: I choose not to answer this question Within the past 12 months, did the food you bought not last and you didn't have the money to get more?: I choose not to answer this question Within the past 12 months, did you worry whether your food would run out before you got money to buy more?: I choose not to answer this question Do you have trouble paying for medicines?: I choose not to answer this question Do you have trouble getting transportation to medical appointments?: I choose not to answer this question Do you have trouble paying your heating and electricity bill?: I choose not to answer this question Do you have trouble taking care of your child, family member or friend?: I choose not to answer this question Do you have trouble with day-to-day activities such as bathing, preparing meals, shopping, managing finances, etc.?: I choose not to answer this question Are you currently unemployed and looking for a job?: I choose not to answer this question Are you interested in more education?: I choose not to answer this question Please select the resources that you would like help with: None Currently or been in a relationship where the following occur: I choose not to answer THRIVE Score: 0 AUDIT C Alcohol Use Questionnaire (AUDIT-C) 1. How often do you have a drink containing alcohol?: Never 3. How often do you have six or more drinks on one occasion?: Never Total Score: 0 ARLIN-7 AMB Questionnaire ARLIN-7 Date ARLIN - 7 assessed: 08/09/24 Feeling nervous, anxious, or on edge: 0 = Not at all Not being able to stop or control worryin = Not at all Worrying too much about different things: 0 = Not at all Trouble relaxin = Not at all Being so restless that it is hard to sit still: 0 = Not at all Becoming easily annoyed or irritable: 0 = Not at all Feeling afraid as if something awful might happen: 0 = Not at all Total ARLIN-7 score (0-4 normal; 5-9 mild; 10-14 moderate; 15-21 severe): 0 Source: Developed by Drs. Gold Rojas, Andra Odom, Trey Roach and colleagues, with an educational ju from [employer]. Physical exam (Primary Care) Vital Signs: Last Vital Signs Temp 97.1 F 11/29/24 11:06 Pulse 77 11/29/24 11:06 BP 122/78 11/29/24 11:06 Pulse Ox 99 11/29/24 11:06 Oxygen Delivery Method Room Air 11/29/24 11:06 BMI result Body Mass Index 26.3 Tobacco/Smoking Status: Tobacco use Status Tobacco use date assessed 11/29/24 11/29/24 11:10 Patient Tobacco Use Status Never used Tobacco 11/29/24 11:10 Tobacco use type Cigarette 11/29/24 11:10 e-Cigarette/Vaping Use Never Used 11/29/24 11:10 PHQ-9: PHQ-9 Score PHQ-9: Total score 0 11/29/24 11:14 Depression Screening Interpretation: Negative Thrive Assessment: Date of Thrive Assessment Date Thrive assessed 08/09/24 11/29/24 11:10 Currently or been in a relationship where the following occur: I choose not to answer Const General: alert; No acute distress Eyes Conjunctivae: conjunctivae normal Resp Auscultation: clear to auscultation bilaterally Cardio Rate: regular rate Rhythm: regular rhythm GI Inspection: Yes normal to inspection Extrem General: Yes normal to inspection and No edema Coding Level of Care Code Est Pt Level 4 (76622) Complex EM visit Add On G2211 Diagnoses Overweight (BMI 25.0-29.9) E66.3 Impaired fasting blood sugar R73.01 LFT elevation R79.89 Lumbar degenerative disc disease M51.36 Asthma J45.909 Major depression F32.9 Assessment & Plan Assessment & Plan (1) Overweight (BMI 25.0-29.9): Code(s): E66.3 - Overweight Category: Medical Plan: Diet and exercise (2) Impaired fasting blood sugar: Code(s): R73.01 - Impaired fasting glucose Category: Medical Plan: Decrease the amount of carbohydrate intake, pasta, bread, rice and potatoes are all sugar and that is aside from all the sweet stuff, remember that fruits are good but they are Sweet also. (3) LFT elevation: Code(s): R79.89 - Other specified abnormal findings of blood chemistry Category: Medical Plan: Advised to get ultrasound of the liver (4) Lumbar degenerative disc disease: Code(s): M51.36 - Other intervertebral disc degeneration, lumbar region Category: Medical Plan: Keep active (5) Asthma: Code(s): J45.909 - Unspecified asthma, uncomplicated Category: Medical Plan: Continue with albuterol inhaler as needed (6) Major depression: Code(s): F32.9 - Major depressive disorder, single episode, unspecified Category: Medical Plan: Continue with duloxetine and discussed about counseling and therapy Plan History of Present Illness The patient is a 54-year-old male presenting for a follow-up visit. The patient has a history of hypercholesterolemia, with recent lab results indicating an LDL cholesterol level of 154 mg/dL and triglycerides at 176 mg/dL, both above the recommended levels. He reports dietary habits that include occasional consumption of high-cholesterol foods and frequent ice cream intake, which may contribute to his elevated cholesterol levels. The patient has lumbar spondylolisthesis, which has been associated with moderate degenerative changes in the lumbar spine and sacroiliac joints. He experiences limitations in physical activity due to this condition and has been advised to refrain from lifting more than 25 pounds. The patient has a history of asthma, managed with an albuterol inhaler used as needed, and reports infrequent use of the inhaler. The patient is also diagnosed with major depression, for which he is prescribed duloxetine 30 mg daily, although he admits to not taking it consistently. He has been advised to consider counseling and therapy to manage his depression. Recent blood work showed mildly elevated blood sugar levels, with a fasting blood glucose of 102 mg/dL, but a normal hemoglobin A1c. Liver function tests revealed elevated liver enzymes, with one value at 51 and another at 41, prompting a recommendation for a liver ultrasound or CT scan for further evaluation. Health Maintenance - Advised to improve diet to manage hypercholesterolemia - Recommended liver ultrasound or CT scan due to elevated liver enzymes - Declined colonoscopy for colorectal cancer screening Social History - Reports dietary habits include frequent ice cream consumption and occasional high-cholesterol foods - Limited physical activity due to lumbar spondylolisthesis Review of Systems - Respiratory: Reports infrequent use of albuterol inhaler, denies frequent asthma exacerbations - Musculoskeletal: Reports limitations in physical activity due to lumbar spondylolisthesis - Endocrine: Reports mildly elevated blood sugar, denies symptoms of diabetes Physical Exam Results - Labs: LDL cholesterol 154 mg/dL, triglycerides 176 mg/dL, fasting blood glucose 102 mg/dL, elevated liver enzymes (51 and 41) - Tests: Normal hemoglobin A1c, normal blood count, normal electrolytes, negative hepatitis profile Plan The patient is advised to improve dietary habits to manage hypercholesterolemia, focusing on reducing intake of high-cholesterol foods and ice cream. A follow-up cholesterol test is recommended in three to six months to monitor progress. For lumbar spondylolisthesis, the patient is advised to avoid lifting more than 25 pounds and to consider physical therapy if symptoms persist. The patient should continue using the albuterol inhaler as needed for asthma management and is encouraged to maintain an active lifestyle within physical limitations. For major depression, the patient is encouraged to adhere to the prescribed duloxetine regimen and to explore counseling and therapy options. Due to elevated liver enzymes, a liver ultrasound or CT scan is recommended to further evaluate liver health. Patient was informed and verbally consented to the use of an ambient scribe for clinic note documentation during this visit. Discussion Notes During the visit, I discussed with the patient the importance of dietary changes to manage hypercholesterolemia, emphasizing the need to reduce high-cholesterol foods and ice cream. We talked about the potential need for medication if cholesterol levels do not improve with lifestyle changes. I advised the patient on managing lumbar spondylolisthesis by avoiding heavy lifting and considering physical therapy if necessary. For asthma, I recommended continuing the albuterol inhaler as needed and encouraged maintaining an active lifestyle. We discussed the importance of adhering to the duloxetine regimen for depression and exploring counseling options. I recommended a liver ultrasound or CT scan to evaluate elevated liver enzymes and discussed the implications of these findings. Patient Instructions - Eat a healthy diet low in cholesterol and avoid ice cream. - Schedule a follow-up cholesterol test in three to six months. - Avoid lifting more than 25 pounds due to back condition. - Use albuterol inhaler as needed for asthma. - Take duloxetine daily and consider counseling for depression. - Arrange for a liver ultrasound or CT scan as recommended. Orders: Orders Complete Blood Count Auto Diff 3 Months E78.00 - Pure hypercholesterolemia, unspecified Comprehensive Met. Panel 3 Months E78.00 - Pure hypercholesterolemia, unspecified Thyroid Stimulating Hormone 3 Months E78.00 - Pure hypercholesterolemia, unspecified Hemoglobin A1c 3 Months E78.00 - Pure hypercholesterolemia, unspecified Lipid Panel 3 Months E78.00 - Pure hypercholesterolemia, unspecified
--- OUTSIDE RECORDS SUMMARY | 2024-11-29 12:02 | XMS_ITS | Clinical Summary ---
Author Organization [facility] Address [address] [facility] [address] [place] [address] Phone Care Team Providers Care Legal Collector Name Role Phone Víctor Willingham MD Primary Care Provider [phone] Allergies Active Allergy Reactions Criticality Noted Date Comments Penicillins 03/22/2022 Medications DULoxetine (CYMBALTA) 30 MG capsule Take 1 capsule by mouth every morning. 04/21/2023 Active Active Problems No known active problems Social History Tobacco Use Types Packs/Day Years Used Date Smoking Tobacco: Never Assessed Education Answer Date Recorded Are you interested in more education? Not on linda e 05/15/2023 Are you concerned about learning? Not on file 05/15/2023 No 05/15/2023 No 05/15/2023 Digital Access Answer Date Recorded No 05/15/2023 No 05/15/2023 Reliable internet access at home? Not on file 05/15/2023 Device with a working camera? Not on file Sex and Gender Information Value Date Recorded Sex Assigned at Not on file Legal Sex Male 1:57 PM EST Gender Identity Not on file Sexual Orientation Not on file Last Filed Vital Signs Vital Sign Reading Time Taken Comments Blood Pressure 117/77 05/15/2023 2:29 PM EST Pulse 87 05/15/2023 2:29 PM EST Temperature 36.7 C (98 F) 05/15/2023 2:29 PM EST Respiratory Rate 18 05/15/2023 2:29 PM EST Oxygen Saturation 98% 05/15/2023 2:29 PM EST Inhaled Oxygen Concentration - - Weight - - Height - - Body Mass Index - - Plan of Treatment Health Maintenance Due Date Last Done Comments LIPID PANEL 1971 DEPRESSION SCREENING 1983 SMOKING Hx and SMOKELESS TOBACCO SCREENING 1984 HEPATITIS C SCREENING 1989 HIV ONE-TIME SCREENING (18-6 5 YEARS) 1989 COLOGUARD 2016 COLONOSCOPY 2016 COLORECTAL CANCER SCREENING 2016 FIT TEST 2016 FOBT 2016 SIGMOIDOSCOPY 2016 VIRTUAL COLONOSCOPY 2016 PNEUMOCOCCAL VACCINES (50+ years) (1 of 1 - PCV) 2021 ZOSTER VACCINES (1 of 2) 2021 COVID-19 VACCINE (3 - 2023-2 5 season) 2024 09/13/2020, 08/22/2020 Adult Td,Tdap Booster 08/27/2026 08/27/2016 HEPATITIS A VACCINES Aged Out No long er eligible based on patient's age to complete this topic HIB VACCINES Aged Out No longer eligi ble based on patient's age to complete this topic MENINGOCOCCAL VACCINES (ACWY) Aged Out No longer eligible based on patient's age to complete this topic MENINGOCOCCAL VACCINES (B) Aged Out N o longer eligible based on patient's age to complete this topic Medical Devices Not on file Insurance [facility] [place] [address] [place] [address] [place] [address] [place] [address] [place] [address] [id number] [facility] Care Teams Legal Collector Relationship Specialty Start Date End Date Víctor Willingham MD [address] [place] [address] [address] [place] [phone] PCP - General Internal Medicine 05/15/23 Additional Source Comments The information contained in this document represents components of the legal health record. It is not the complete legal health record.[facility]
--- OUTSIDE RECORDS SUMMARY | 2024-11-29 12:02 | XMS_ITS | Clinical Summary ---
Author Organization [facility], Address [address] [place] [address] Phone Care Team Providers Care Customer Liaison Name Role Phone Víctor Willingham MD Primary Care Provider [phone] Allergies Active Allergy Reactions Criticality Noted Date [...] Influenza Vaccine (#1) 2025 Insurance [employer] Insurance [facility] Healthnet Care Teams Customer Liaison Relationship Specialty Start Date End Date Víctor Willingham MD [facility] [address] [place], [place] PCP - General Internal Medicine 03/22/22
== END 2024-11-29 11:30 | disposition home or self-care (01) ==
LOC: HO.HMCH 10:54
PROVIDERS: PCP Internal Medicine; Visit Provider Internal Medicine
DX: E66.3 Overweight (principal); R73.01 Impaired fasting glucose; R79.89 Other specified abnormal findings of blood chemistry; M51.369 Other intervertebral disc degeneration, lumbar region without mention of lumbar back pain or lower extremity pain; J45.909 Unspecified asthma, uncomplicated; F32.9 Major depressive disorder, single episode, unspecified

== ENCOUNTER → 2024-11-29 10:53 | Outpatient (BNVA) | payer OTHER, SELFPAY | PROVIDERS: PCP Internal Medicine; Visit Provider Internal Medicine | DX: E66.3 Overweight (principal); Z68.26 Body mass index [BMI] 26.0-26.9, adult; R73.01 Impaired fasting glucose; R79.89 Other specified abnormal findings of blood chemistry; M51.369 Other intervertebral disc degeneration, lumbar region without mention of lumbar back pain or lower extremity pain; J45.909 Unspecified asthma, uncomplicated; F32.9 Major depressive disorder, single episode, unspecified; Z79.899 Other long term (current) drug therapy; Z13.31 Encounter for screening for depression | CPT/HCPCS: 99212 ==

== ENCOUNTER 2024-12-06 08:52 | Outpatient (REF) | payer OTHER, SELFPAY ==
--- NOTE | ~2024-12-06 | CT_ITS ---
EXAMINATION: CT ABDOMEN PELVIS WITH IV CONTRAST HISTORY: R10.31 - Right lower quadrant pain COMPARISON: There are no prior studies for available comparison. TECHNIQUE: CT scan of the abdomen and pelvis was performed following administration of 85 mL Omnipaque 350 using standard departmental protocol. Coronal and sagittal reformatted images were generated and reviewed. The patient received oral contrast material. This CT exam was performed with one or more of the following dose reduction techniques: automated exposure control, adjustment of the mA and/or kV according to patient size, use of iterative reconstruction technique. DLP: 479 mGy-cm FINDINGS: LOWER CHEST: The visualized lung bases are clear. There is no pleural effusion. CARDIOVASCULATURE: The heart is normal in size. There is no pericardial effusion. LIVER: The liver is normal in size and contour. No liver mass is identified. The hepatic and portal veins are patent. GALLBLADDER / BILE DUCTS: The gallbladder is unremarkable. There is no intra or extrahepatic biliary ductal dilatation. SPLEEN: The spleen is normal in size. No focal splenic lesion is identified. PANCREAS: The pancreas is unremarkable in appearance. ADRENAL GLANDS: Within normal limits. KIDNEYS/RETROPERITONEUM: No renal calculi are identified. There is no hydronephrosis. There is a 10 mm cyst in the interpolar region of the right kidney. LYMPH NODES: No abdominal or pelvic lymphadenopathy. VASCULATURE: The abdominal aorta is normal in caliber. MESENTERY/PERITONEUM: No free fluid. No masses. There is no free intraperitoneal gas. STOMACH: The stomach is unremarkable. SMALL BOWEL: The small bowel is normal in caliber. COLON: There is a large amount of stool throughout the colon. APPENDIX: The appendix is surgically absent. URINARY BLADDER/PELVIC ORGANS: The urinary bladder is unremarkable. The prostate is normal in size. BONES / SOFT TISSUES: There is bilateral spondylolysis of L5 with slight spondylolisthesis of L5 on S1. CT/CT abdomen pelvis w IV con IMPRESSION: 1. Large amount of stool throughout the colon. 2. Bilateral spondylolysis of L5 with slight spondylolisthesis of L5 on S1. Electronically signed by: Gold Sy MD 12/06/2024 11:29 AM EDT
--- OUTSIDE RECORDS SUMMARY | 2024-12-06 09:26 | XMS_ITS | Clinical Summary ---
Author Organization [facility], Address [address] [place] [address] Phone Care Team Providers Care Assistant Broker Name Role Phone Víctor Willingham MD Primary Care Provider [phone] Allergies Active Allergy Reactions Criticality Noted Date [...] Influenza Vaccine (#1) 2025 Insurance [employer] Insurance [facility] Healthnet Care Teams Assistant Broker Relationship Specialty Start Date End Date Víctor Willingham MD [facility] [address] [place], [place] PCP - General Internal Medicine 03/22/22
--- OUTSIDE RECORDS SUMMARY | 2024-12-06 09:26 | XMS_ITS | Clinical Summary ---
Author Organization [facility] Address [address] [facility] [address] [place] [address] Phone Care Team Providers Care Assistant Chief Nursing Officer Name Role Phone Víctor Willingham MD Primary Care Provider [phone] Allergies Active Allergy Reactions Criticality Noted Date [...] Medical Devices Not on file Insurance [facility]CO [facility] [place] [address] [place] [address] [place] [address] [place] [address] [address] [place] [id number] [facility] Care Teams Assistant Chief Nursing Officer Relationship Specialty Start Date End Date Víctor Willingham MD [address] [place] [address] [address] [place] [phone] PCP - General Internal Medicine 05/15/23 Additional Source Comments The information contained in this document represents components of the legal health record. It is not the complete legal health record.[facility]
[2024-12-06] MEDS: Barium Sulfate Oral (Vanilla) 450 ML ORAL.SUSP 900 ML PO (11:14)
[2024-12-06] MEDS: iohexoL 350 MG/ML 100 ML INFUS..BTL IV (11:15)
== END 2024-12-06 08:53 | disposition home or self-care (01) ==
LOC: HO.CT 08:52
PROVIDERS: PCP Internal Medicine; Visit Provider Internal Medicine
DX: R10.31 Right lower quadrant pain (principal)
CPT/HCPCS: 74177; Q9967

== ENCOUNTER → 2024-12-06 09:02 | Outpatient (BNV) | payer OTHER, SELFPAY | PROVIDERS: PCP Internal Medicine; Visit Provider Radiology Diagnostic Radiology | DX: K56.41 Fecal impaction (principal); M47.816 Spondylosis without myelopathy or radiculopathy, lumbar region | CPT/HCPCS: 74177 ==

== ENCOUNTER 2025-01-24 13:44 | Outpatient (REF) | payer OTHER, SELFPAY ==
--- NOTE | ~2025-01-24 | XR_ITS ---
EXAMINATION: XR ANKLE, right CLINICAL INFORMATION: M25.571 - Pain in right ankle and joints of right foot COMPARISON: None available. TECHNIQUE: AP, lateral, and mortise views lower extremity joint, ankle. FINDINGS: Ankle mortise is congruent. There is no widening of the syndesmosis. Talar dome is intact. There are no calcaneal enthesophytes. XR/XR ankle RT min 3V IMPRESSION: Unremarkable ankle x-ray. Electronically signed by: Kt Calix MD 01/24/2025 02:13 PM EDT
--- OUTSIDE RECORDS SUMMARY | 2025-01-24 19:00 | XMS_ITS | Clinical Summary ---
Author Organization [facility] Address [address] [facility] [address] [place] [address] Phone Care Team Providers Care Boy'S Adviser Name Role Phone Víctor Willingham MD Primary Care Provider [phone] Allergies Active Allergy Reactions Criticality Noted Date [...] 2021 ZOSTER VACCINES (1 of 2) 2021 INFLUENZA VACCINE (#1) 2024 7, 01/16/2016 COVID-19 VACCINE (3 - 2024-2 6 season) 2025 09/13/2020, 08/22/2020 Adult Td,Tdap Booster 08/27/2026 08/27/2016 [...] topic Medical Devices Not on file Insurance [facility] [place] [address] [facility] [place] [address] [place] [address] [place] [address] [place] [address] [place] [address] [place] [address] [place] [phone] [facility] ACO Care Teams Boy'S Adviser Relationship Specialty Start Date End Date Víctor Willingham MD [address] [place] [address] [address] [place] [phone] PCP - General Internal Medicine 05/15/23 Additional Source Comments The information contained in this document represents components of the legal health record. It is not the complete legal health record.[facility]
--- OUTSIDE RECORDS SUMMARY | 2025-01-24 19:00 | XMS_ITS | Clinical Summary ---
Author Organization [facility], Address [address] [place] [address] Phone Care Team Providers Care Kettle Worker Name Role Phone Víctor Willingham MD Primary Care Provider [phone] Allergies Active Allergy Reactions Criticality Noted Date [...] Influenza Vaccine (#1) 2025 Insurance [employer] Insurance [facility] Healthnet Care Teams Kettle Worker Relationship Specialty Start Date End Date Víctor Willingham MD [facility] [address] [place], [place] PCP - General Internal Medicine 03/22/22
== END 2025-01-24 13:45 | disposition home or self-care (01) ==
LOC: HO.HMGCX 13:44
PROVIDERS: PCP Internal Medicine; Visit Provider Internal Medicine
DX: M25.571 Pain in right ankle and joints of right foot (principal)
CPT/HCPCS: 73610

== ENCOUNTER → 2025-01-24 13:59 | Outpatient (BNV) | payer OTHER, SELFPAY | PROVIDERS: PCP Internal Medicine; Visit Provider Radiology Diagnostic Radiology | DX: M25.571 Pain in right ankle and joints of right foot (principal) | CPT/HCPCS: 73610 ==

== ENCOUNTER 2025-01-26 15:42 | Outpatient (AMB) | payer OTHER, SELFPAY ==
--- NOTE | 2025-01-26 15:50 | MHC.PC.OV ---
Vital Signs 01/26/25 15:51 Height 5 ft 6 in Weight 165 lb 6 oz BMI 26.7 BP 102/72 Blood Pressure Location Lt brachial Position Sitting Pulse 70 Pulse Source Pulse Oximeter Temp 97.3 F Temp Source Temporal Artery Scan Pulse Oximetry (%) 99 Oxygen Delivery Method Room Air Intake Visit Reasons: Ankle still swollen requesting MRI Intake Note: Patient is here to follow up on Right Ankle swelling request for MRI. Signaling Project Engineer Required: No Life Science Research Assistant: Not Required per policy Accompanied by: Self / Same As Patient Allergies penicillin G Allergy (Unknown, Verified 01/26/25 15:50) rash Medication List - Last Reconciled 01/26/25 by Soumya Ramos MD albuterol sulfate 90 mcg/actuation (ProAir HFA) 2 puffs inhalation QID PRN blood pressure monitor (Blood Pressure Kit) As directed cyclobenzaprine 10 mg PO Q12H PRN duloxetine 30 mg PO DAILY ibuprofen 600 mg PO Q8H PRN Tobacco use date assessed: 01/26/25 Dental Screening Dental Screen Date: 08/09/24 HPI HPI Comments History of Present Illness Details The patient is a 54-year-old male presenting with foot pain and swelling following a twisting injury. Approximately two to three weeks ago, the patient twisted his foot, resulting in immediate pain and swelling. The swelling and pain has been improving. But he still experiences pain especially when the foot is cold or under pressure. The patient reported hearing a sound at the time of injury, raising concerns about a possible ligament injury. An X-ray was performed, which did not reveal any fractures. The patient has not taken any medication for the pain but was advised to use ibuprofen and apply ice to reduce inflammation. He was also prescribed Voltaren gel to apply topically to the affected area. [facility] Medical History Overweight (BMI 25.0-29.9) Asthma Spondylolisthesis at L5-S1 level Thrombocytopenia Hypercholesterolemia Surgical History Hx of appendectomy Family History Father Substance use disorder Social History Housing: Apartment Alcohol intake: former Patient Tobacco Use Status: Never used Tobacco Tobacco use type: Cigarette e-Cigarette/Vaping Use: Never Used Second Hand Smoke Exposure: No service: No Current occupational status: employed Current occupational exposures/hazards: No Cognitive needs: No Hearing needs: No Vision needs: No Questionnaire Thrive Questionnaire Date Thrive assessed: 08/09/24 I am a: Patient What is your living situation today?: I choose not to answer this question Within the past 12 months, did the food you bought not last and you didn't have the money to get more?: I choose not to answer this question Within the past 12 months, did you worry whether your food would run out before you got money to buy more?: I choose not to answer this question Do you have trouble paying for medicines?: I choose not to answer this question Do you have trouble getting transportation to medical appointments?: I choose not to answer this question Do you have trouble paying your heating and electricity bill?: I choose not to answer this question Do you have trouble taking care of your child, family member or friend?: I choose not to answer this question Do you have trouble with day-to-day activities such as bathing, preparing meals, shopping, managing finances, etc.?: I choose not to answer this question Are you currently unemployed and looking for a job?: I choose not to answer this question Are you interested in more education?: I choose not to answer this question Please select the resources that you would like help with: None Currently or been in a relationship where the following occur: I choose not to answer THRIVE Score: 0 ARLIN-7 AMB Questionnaire ARLIN-7 Date ARLIN - 7 assessed: 08/09/24 Source: Developed by Drs. Gold Rojas, Andra Odom, Trey Roach and colleagues, with an educational ju from [employer]. Review of Systems Const Details: Positives besides what was mentioned in HPI are in BOLD Constitutional: No Weight Change, No Fever, No Chills, No Night Sweats, No Fatigue, No Malaise ENT/Mouth: No Hearing Changes, No Ear Pain, No Nasal Congestion, No Sinus Pain, No Hoarseness, No sore throat, No Rhinorrhea, No Swallowing Difficulty Eyes: No Eye Pain, No Swelling, No Redness, No Foreign Body, No Discharge, No Vision Changes Cardiovascular: No Chest Pain, No SOB, No PND, No Dyspnea on Exertion, No Orthopnea, No Claudication, No Edema, No Palpitations Respiratory: No Cough, No Sputum, No Wheezing, No Smoke Exposure, No Dyspnea Gastrointestinal: No Nausea, No Vomiting, No Diarrhea, No Constipation, No Pain, No Heartburn, No Anorexia, No Dysphagia, No Hematochezia, No Melena, No Flatulence, No Jaundice Genitourinary: No Dysmenorrhea, No DUB, No Dyspareunia, No Dysuria, No Urinary Frequency, No Hematuria, No Urinary Incontinence, No Urgency, No Flank Pain, No Urinary Flow Changes, No Hesitancy Musculoskeletal: No Arthralgias, No Myalgias, No Joint Swelling, No Joint Stiffness, No Back Pain, No Neck Pain, No Injury History Skin: No Skin Lesions, No Pruritis, No Hair Changes, No Breast/Skin Changes, No Nipple Discharge Neuro: No Weakness, No Numbness, No Paresthesias, No Loss of Consciousness, No Syncope, No Dizziness, No Headache, No Coordination Changes, No Recent Falls Psych: No Anxiety/Panic, No Depression, No Insomnia, No Personality Changes, No Delusions, No Rumination, No SI/HI/AH/VH, No Social Issues, No Memory Changes, No Violence/Abuse Hx., No Eating Concerns Heme/Lymph: No Bruising, No Bleeding, No Transfusions History, No Lymphadenopathy Endocrine: No Polyuria, No Polydipsia, No Temperature Intolerance Physical exam (Primary Care) Vital Signs: Last Vital Signs Temp 97.3 F 01/26/25 15:51 Pulse 70 01/26/25 15:51 BP 102/72 01/26/25 15:51 Pulse Ox 99 01/26/25 15:51 Oxygen Delivery Method Room Air 01/26/25 15:51 BMI result Body Mass Index 26.7 Tobacco/Smoking Status: Tobacco use Status Tobacco use date assessed 01/26/25 01/26/25 15:57 Patient Tobacco Use Status Never used Tobacco 01/26/25 15:57 Tobacco use type Cigarette 01/26/25 15:57 e-Cigarette/Vaping Use Never Used 01/26/25 15:57 Thrive Assessment: Date of Thrive Assessment Date Thrive assessed 08/09/24 01/26/25 15:57 Currently or been in a relationship where the following occur: I choose not to answer Const Other: Pertinent findings are in BOLD GENERAL APPEARANCE NAD, activity normal for age, well developed/ well nourished, no cyanosis, pallor, or diaphoresis. EYES lids/conjunctiva normal. EARS/NOSE/THROAT Mucous membranes moist, nares normal, lips/teeth normal uvula midline without oral pharyngeal erythema, exudate or swelling TMs normal bilaterally. No lymphangitis/lymphedema. HEAD/NECK normocephalic atraumatic, no facial trauma, neck is supple. RESPIRATORY respiratory effort normal, speaks in full sentences, no tripod position, no accessory muscle use. Lungs clear to auscultation without rhonchi, wheezes, rales CARDIAC Regular rate and rhythm, no edema. ABDOMINAL Soft, ND/NT. No evidence of fluid wave. No pulsatile masses on exam, rebound tenderness, Pereyra sign or pain over Mcburney's point. MUSCLES/EXTREMITIES No abnormal range of motion, no swelling. SKIN Warm, pink and dry. No rashes, dermatoses, petechiae or lesions. NEUROLOGICAL Speech is clear and appropriate. Normal level of consciousness. Gait and coordination are normal. 5/5 strength in all extremities. PSYCH Normal mood and affect. Judgement/competence is appropriate Foot: swelling and mild point tenderness in his lateral area of the right foot. Coding Level of Care Code Est Pt Level 3 (36214) Diagnoses Right ankle swelling M25.471 Laterality: right Assessment & Plan Assessment & Plan (1) Ankle swelling: Code(s): M25.473 - Effusion, unspecified ankle Category: Medical Qualifiers: Laterality: right Qualified Code(s): M25.471 - Effusion, right ankle Plan: Voltaren gel to help with inflammation. ERNESTINA. Ibuprofen 400mg Q8hr PRN for pain. Advised patient to let Dr. Willingham if symptoms does not improve when he sees him in Mar 2025. X ray with no fracture, Plan During the visit, I discussed with the patient the nature of his foot injury and the results of the X-ray, which showed no fractures. I explained that the pain and swelling are likely due to inflammation from a soft tissue injury or ligament strain. We discussed the use of ibuprofen and Voltaren gel to manage symptoms, and I advised on rest and ice application. I also informed the patient that if symptoms do not improve, further imaging such as an MRI may be considered, although insurance coverage might be an issue. Medications: New ibuprofen 400 mg (2 x 200 mg) PO Q6H PRN 30 caps 0RF pain
[2025-01-26 15:51] VITALS: BP 102/72; PULSE 70; TEMP 36.3; O2SAT 99; BMI 26.7
--- OUTSIDE RECORDS SUMMARY | 2025-01-26 19:02 | XMS_ITS | Clinical Summary ---
Author Organization [facility], Address [address] [place] [address] Phone Care Team Providers Care Home Health Nurse Name Role Phone Víctor Willingham MD Primary Care Provider [phone] Allergies Active Allergy Reactions Criticality Noted Date [...] Influenza Vaccine (#1) 2025 Insurance [employer] Insurance [facility] Healthnet Care Teams Home Health Nurse Relationship Specialty Start Date End Date Víctor Willingham MD [facility] [address] [place], [place] PCP - General Internal Medicine 03/22/22
--- OUTSIDE RECORDS SUMMARY | 2025-01-26 19:02 | XMS_ITS | Clinical Summary ---
Author Organization [facility] Address [address] [place] [id number] Phone Care Team Providers Care Aerial Gunner Name Role Phone Víctor Willingham MD Primary Care Provider [phone] Allergies Active Allergy Reactions Criticality Noted Date [...] file Insurance [facility] [place] [address] [place] [address] [place] [address] [place] [address] [place] [address] [place] [address] [address] [place] [id number] [facility] ACO Care Teams Aerial Gunner Relationship Specialty Start Date End Date Víctor Willingham MD [address] [place] [address] [address] [place] [id number] PCP - General Internal Medicine 05/15/23 Additional Source Comments The information contained in this document represents components of the legal health record. It is not the complete legal health record.[facility]
== END 2025-01-26 16:11 | disposition home or self-care (01) ==
LOC: HO.HMCH 15:43
PROVIDERS: PCP Internal Medicine; Visit Provider Internal Medicine
DX: M25.471 Effusion, right ankle (principal)

== ENCOUNTER → 2025-01-26 15:42 | Outpatient (BNVA) | payer OTHER, SELFPAY | PROVIDERS: PCP Internal Medicine; Visit Provider Internal Medicine | DX: M25.471 Effusion, right ankle (principal); Z87.828 Personal history of other (healed) physical injury and trauma | CPT/HCPCS: 99212 ==

== ENCOUNTER 2025-03-28 10:52 | Outpatient (AMB) | payer OTHER, SELFPAY ==
[2025-03-28 11:02] VITALS: BP 128/72; PULSE 68; O2SAT 98; BMI 27.0
--- NOTE | 2025-03-28 11:02 | A.OFFPC_ITS ---
Vital Signs 03/28/25 11:02 03/28/25 11:47 Height 5 ft 6 in Weight 167 lb BMI 27.0 BP 128/72 120/70 Blood Pressure Location Lt brachial Lt brachial Position Sitting Sitting Pulse 68 Pulse Source Pulse Oximeter Pulse Oximetry (%) 98 Oxygen Delivery Method Room Air Intake Visit Reasons: cholesterol , LFT high Allergies penicillin G Allergy (Unknown, Verified 03/28/25 11:02) rash Medication List - Last Reconciled 03/28/25 by Víctor Willingham MD albuterol sulfate 90 mcg/actuation (ProAir HFA) 2 puffs inhalation QID PRN blood pressure monitor (Blood Pressure Kit) As directed cyclobenzaprine 10 mg PO Q12H PRN duloxetine 30 mg PO DAILY ibuprofen 400 mg (2 x 200 mg) PO Q6H PRN Tobacco use date assessed: 01/26/25 Dental Screening Dental Screen Date: 08/09/24 HPI HPI Comments History of Present Illness Details History of Present Illness The patient is a 54-year-old overweight male with a history of hypercholesterolemia, lumbar spondylolisthesis, asthma, impaired glucose karley erance, and depression, presenting for a follow-up visit. The patient was seen in January 2017 for ankle swelling, and an ankle x-ray from January 2015 was negative for fracture. He was treated with anti- inflammatories at that time and currently reports a small amount of persistent pain, though it is not a significant issue. The swelling occurred without a fall and was suspected to be a tendon injury. A review of blood work from November 2015 showed a normal blood count, electrolytes, and renal function, but an elevated blood sugar with a normal hemoglobin A1c. His liver enzymes were elevated at 38 and 41, and cholesterol was elevated with an LDL of 154 mg/dL. The management plan for his cholesterol has been diet and exercise with a goal LDL of less than 130 mg/dL. A liver CT scan in November 2024 was negative, and a prostate test was also negative. The patient reports a family history of liver cancer in his mother. He also noted that his sister was recently hospitalized for high blood pressure and a possible minor heart attack. He reports a self-measured blood pressure of 148 systolic a couple of days ago, associated with lightheadedness. Regarding health maintenance, the patient is due for a colonoscopy but has not completed it. He is up to date with his tetanus shot but does not receive flu shots. Health Maintenance The patient was counseled on completing his outstanding colon cancer screening with the stool testing kit he has. He was also strongly encouraged to get the shingles vaccine, which is a two-dose series, and to consider the annual flu shot. He was instructed to complete his pending fasting lab work. Social History - Family History: Reports his mother had liver cancer. - His sister was recently hospitalized w ith high blood pressure and a suspected minor heart attack. - Lifestyle: Recommended diet and exerci se for cholesterol management. Results - Labs (November 2015): Blood work showed a normal blood count, electrolytes, renal function, and a normal hemoglobin A1c. - Noted for elevated blood sugar, elevat ed liver enzymes (38 and 41), and elevated cholesterol with an LDL of 154 mg/dL. - Prostate-specific antigen (PSA) was ne gative. - Imaging: Ankle x-ray (January 2015) was negative. - A liver CT scan (November 2024) was negati ve. [facility] Medical History Overweight (BMI 25.0-29.9) Asthma Spondylolisthesis at L5-S1 level Thrombocytopenia Hypercholesterolemia Surgical History Hx of appendectomy Family History (Updated 03/28/25 @ 11:45 by Víctor Willingham MD) Father Substance use disorder Mother Liver cancer Social History Housing: Apartment Alcohol intake: former Patient Tobacco Use Status: Never used Tobacco Tobacco use type: Cigarette e-Cigarette/Vaping Use: Never Used Second Hand Smoke Exposure: No service: No Current occupational status: employed Current occupational exposures/hazards: No Cognitive needs: No Hearing needs: No Vision needs: No Questionnaire Thrive Questionnaire Date Thrive assessed: 08/09/24 I am a: Patient What is your living situation today?: I choose not to answer this question Within the past 12 months, did the food you bought not last and you didn't have the money to get more?: I choose not to answer this question Within the past 12 months, did you worry whether your food would run out before you got money to buy more?: I choose not to answer this question Do you have trouble paying for medicines?: I choose not to answer this question Do you have trouble getting transportation to medical appointments?: I choose not to answer this question Do you have trouble paying your heating and electricity bill?: I choose not to answer this question Do you have trouble taking care of your child, family member or friend?: I choose not to answer this question Do you have trouble with day-to-day activities such as bathing, preparing meals, shopping, managing finances, etc.?: I choose not to answer this question Are you currently unemployed and looking for a job?: I choose not to answer this question Are you interested in more education?: I choose not to answer this question Please select the resources that you would like help with: None Currently or been in a relationship where the following occur: I choose not to answer THRIVE Score: 0 ARLIN-7 AMB Questionnaire ARLIN-7 Date ARLIN - 7 assessed: 08/09/24 Source: Developed by Drs. Gold Rojas, Andra Odom, Trey Roach and colleagues, with an educational ju from [employer]. Review of Systems Narrative Review of Systems - Musculoskeletal: Reports mild, persistent pain in his ankle. - Neurological: Reports a resolved two-day episode of feeling light-headed. Physical exam (Primary Care) Vital Signs: Last Vital Signs Pulse 68 03/28/25 11:02 BP 120/70 03/28/25 11:47 Pulse Ox 98 03/28/25 11:02 Oxygen Delivery Method Room Air 03/28/25 11:02 BMI result Body Mass Index 27.0 Tobacco/Smoking Status: Tobacco use Status Tobacco use date assessed 01/26/25 03/28/25 11:03 Patient Tobacco Use Status Never used Tobacco 03/28/25 11:03 Tobacco use type Cigarette 03/28/25 11:03 e-Cigarette/Vaping Use Never Used 03/28/25 11:03 Thrive Assessment: Date of Thrive Assessment Date Thrive assessed 08/09/24 03/28/25 11:03 Currently or been in a relationship where the following occur: I choose not to answer Narrative Physical Exam - Vitals: Blood pressure is 120/70 mmHg. - Respiratory: Lungs are clear to auscultation bilaterally. Const General: alert; No acute distress Eyes Conjunctivae: conjunctivae normal Resp Auscultation: clear to auscultation bilaterally Cardio Rate: regular rate Rhythm: regular rhythm GI Inspection: Yes normal to inspection Extrem General: Yes normal to inspection and No edema Coding Level of Care Code Est Pt Level 4 (25952) Complex EM visit Add On G2211 Diagnoses Hypercholesterolemia E78.00 Impaired fasting blood sugar R73.01 Overweight (BMI 25.0-29.9) E66.3 LFT elevation R79.89 Colonoscopy refused Z53.20 Right ankle pain M25.571 Assessment & Plan Assessment & Plan (1) Hypercholesterolemia: Code(s): E78.00 - Pure hypercholesterolemia, unspecified Category: Medical Plan: Avoid fried foods, chicken skin, eggs, butter margarine, pastries and meat. Be it pork or beef they have a lot of cholesterol LDL goal of less than 130 and triglyceride of less than 150. (2) Impaired fasting blood sugar: Code(s): R73.01 - Impaired fasting glucose Category: Medical Plan: Decrease the amount of carbohydrate intake, pasta, bread, rice and potatoes are all sugar and that is aside from all the sweet stuff, remember that fruits are good but they are Sweet also. (3) Overweight (BMI 25.0-29.9): Code(s): E66.3 - Overweight Category: Medical Plan: Diet and exercise (4) LFT elevation: Code(s): R79.89 - Other specified abnormal findings of blood chemistry Category: Medical Plan: Liver CT scan November 2019 5- (5) Colonoscopy refused: Code(s): Z53.20 - Procedure and treatment not carried out because of patient's decision for unspecified reasons Category: Medical (6) Right ankle pain: Code(s): M25.571 - Pain in right ankle and joints of right foot Category: Medical Plan: Patient had an x-ray that was negative. Advised anti-inflammatory Plan Plan Patient was informed and verbally consented to the use of an ambient scribe for clinic note documentation during this visit. 1. Hypercholesterolemia The patient's last LDL was 154 mg/dL in November 2015, with a goal of less than 130 mg/dL. He will continue with diet and exercise interventions. A pending fasting blood work order is in the system to re-evaluate his cholesterol levels, and results will be discussed over the phone. 2. Elevated Liver Enzymes And Family History Of Liver Cancer Given the history of elevated liver enzymes and the patient's report of his mother having liver cancer, further evaluation is warranted. An ultrasound of the liver will be ordered. 3. Ankle Pain The patient reports persistent mild ankle pain following a past swelling episode, with a negative x-ray. He was advised that if the pain persists, a referral to orthopedics would be appropriate. 4. Impaired Glucose Tolerance Due to a history of elevated blood sugar, the pending fasting lab work will include a blood sugar check. The results will be discussed by phone. Discussion Notes I reviewed the patient's history, including his prior elevated cholesterol and liver enzymes. Given his family history of liver cancer in his mother, I recommended a liver ultrasound, and he consented. We discussed his mild, persistent ankle pain and the plan for an orthopedic referral if it continues to be bothersome. I reassured him that his in-office blood pressure of 120/70 mmHg was excellent, despite a recent high home reading. I instructed him to complete overdue fasting blood work to recheck his cholesterol and glucose, and to message me afterward to review the results by phone. I strongly recommended he obtain the shingles vaccine, explaining it is a two-part series, and also encouraged him to get the flu shot. Finally, I reminded him of the importance of completing his colon cancer screening. Patient Instructions - Go to the lab to get your fasting blood work done to check your cholesterol and sugar levels. - After you complete the blood work, send us a message so we can discuss the results over the phone. - An order for a liver ultrasound will be placed; please complete this test. - If your ankle pain continues, we will consider a referral to an metrology specialist. - Please use the stool test kit you have at home for colon cancer screening. - Be careful to avoid getting sick by staying away from anyone who is coughing or sneezing. - You should get the shingles vaccine, which is given in two shots and is available at your local pharmacy. Orders: Orders US abdomen complete Today R79.89 - Other specified abnormal findings of blood chemistry
[2025-03-28 11:47] VITALS: BP 120/70
== END 2025-03-28 11:53 | disposition home or self-care (01) ==
LOC: HO.HMCH 10:52
PROVIDERS: PCP Internal Medicine; Visit Provider Internal Medicine
DX: E78.00 Pure hypercholesterolemia, unspecified (principal); R73.01 Impaired fasting glucose; E66.3 Overweight; R79.89 Other specified abnormal findings of blood chemistry; Z53.20 Procedure and treatment not carried out because of patient's decision for unspecified reasons; M25.571 Pain in right ankle and joints of right foot

== ENCOUNTER → 2025-03-28 10:52 | Outpatient (BNVA) | payer OTHER, SELFPAY | PROVIDERS: PCP Internal Medicine; Visit Provider Internal Medicine | DX: E78.00 Pure hypercholesterolemia, unspecified (principal); R73.01 Impaired fasting glucose; E66.3 Overweight; R79.89 Other specified abnormal findings of blood chemistry; M25.571 Pain in right ankle and joints of right foot; Z80.0 Family history of malignant neoplasm of digestive organs; Z53.20 Procedure and treatment not carried out because of patient's decision for unspecified reasons; Z71.89 Other specified counseling | CPT/HCPCS: 99212 ==

== ENCOUNTER 2025-03-30 10:43 | Outpatient (REF) | payer OTHER, SELFPAY ==
[2025-03-30 14:13] LABS: MANUAL DIFF FLAG NO
[2025-03-30 14:15] LABS: Hematocrit 44.3 % (42.0-52.0); Hemoglobin 15.2 g/dl (14.0-18.0); Imm Gran Abs Auto 0.08 X10*3/uL (0.00-0.03); Imm Gran Pct Auto 1.2 % (0.0-0.4); Lymphocytes Absolute Auto 2.0 X10*3/uL (1.2-4.9); Mean Corpuscular HGB Conc 34.3 g/dl (31.0-36.0); Mean Corpuscular Hemoglobin 30.0 pg (27.0-33.0); Mean Corpuscular Volume 87.4 fL (80.0-98.0); NRBC Abs Auto 0.000 X10*3/uL (0.0-0.012); NRBC Pct Auto 0.0 /100WBC (0.0-0.2); Platelet Count 160 X10*3/uL (160-400); Red Blood Count 5.07 X10*6/uL (4.60-5.80); White Blood Count 6.4 X10*3/uL (4.8-10.8)
[2025-03-30 15:54] LABS: Alanine Aminotransferase 40 U/L (0-40); Albumin Level 4.6 g/dL (3.5-5.0); Alkaline Phosphatase 58 U/L (39-117); Anion Gap 11 (12-20); Aspartate Amino Transferase 36 U/L (5-37); Blood Urea Nitrogen 14 mg/dL (9-16); Calcium 9.4 mg/dL (8.4-10.2); Carbon Dioxide 27 mmol/L (22-29); Chloride 107 mmol/L (96-108); Cholesterol 262 mg/dL (<200); Estimated Glomerular Filt Rate > 60; HDL Cholesterol 33 mg/dL (>40); Potassium 4.3 mmol/L (3.3-5.1); Sodium 141 mmol/L (135-145); Thyroid Stimulating Hormone 3.49 uIU/mL (0.32-4.0); Total Protein 7.4 g/dL (6.5-8.0); Triglycerides 719 mg/dL (<150)
--- OUTSIDE RECORDS SUMMARY | 2025-03-30 21:05 | XMS_ITS | Clinical Summary ---
Author Organization [facility], Address [address] [place] [address] Phone Care Team Providers Care Pulmonary Nurse Practitioner Name Role Phone Víctor Willingham MD Primary Care Provider Allergies Active Allergy Reactions Criticality Noted Date [...] Influenza Vaccine (#1) 2025 Insurance [employer] Insurance [facility] Healthnet Care Teams Pulmonary Nurse Practitioner Relationship Specialty Start Date End Date Víctor Willingham MD [facility] [address] [place], [place] PCP - General Internal Medicine 03/22/22
== END 2025-03-30 10:44 | disposition home or self-care (01) ==
LOC: HO.WFDLDS 10:43
PROVIDERS: Visit Provider Internal Medicine
DX: E78.00 Pure hypercholesterolemia, unspecified (principal)
CPT/HCPCS: 36415; 80053; 80061; 83036; 84443; 85025

== ENCOUNTER 2025-04-11 10:58 | Outpatient (AMB) | payer OTHER, SELFPAY ==
[2025-04-11 11:16] VITALS: BP 114/70; PULSE 68; O2SAT 98; BMI 26.1
--- NOTE | 2025-04-11 11:16 | A.OFFPC_ITS ---
Vital Signs 04/11/25 11:16 Height 5 ft 6 in Weight 162 lb BMI 26.1 BP 114/70 Blood Pressure Location Lt brachial Position Sitting Pulse 68 Pulse Source Pulse Oximeter Pulse Oximetry (%) 98 Oxygen Delivery Method Room Air Intake Visit Reasons: Discuss lab results Allergies penicillin G Allergy (Unknown, Verified 04/11/25 11:16) rash Medication List - Last Reconciled 04/11/25 by Víctor Willingham MD albuterol sulfate 90 mcg/actuation (ProAir HFA) 2 puffs inhalation QID PRN blood pressure monitor (Blood Pressure Kit) As directed cyclobenzaprine 10 mg PO Q12H PRN duloxetine 30 mg PO DAILY ibuprofen 400 mg (2 x 200 mg) PO Q6H PRN Tobacco use date assessed: 01/26/25 Dental Screening Dental Screen Date: 08/09/24 HPI HPI Comments History of Present Illness Details History of Present Illness The patient is a 54 year old individual presenting for a follow-up visit after being seen on March 28, 2025, to discuss recent lab work from March 30. The patient's past medical history includes hypercholesterolemia, lumbar spondylosis or spondylolisthesis, asthma, and depression. Recent laboratory results showed a normal blood count, normal electrolytes, a creatinine of 1.01, and a normal hemoglobin A1c. However, the lipid panel was significantly abnormal with a triglyceride level of 719 mg/dL and a total cholesterol of 262 mg/dL. The HDL was low at 33 mg/dL, and the LDL was not calculable, though it was noted to be 176 mg/dL in November. Liver function tests have reportedly improved from previous elevations. There is a significant family history of hyperlipidemia, with both the patient's sister and daughter having the condition, suggesting a genetic predisposition. The patient reports going to the gym for exercise and states an intention to follow a healthy diet, avoiding greasy foods, though there is some confusion regarding carbohydrate versus cholesterol sources. Health Maintenance - Lab monitoring: Recent blood work from March 30 showed a triglyceride level of 719 mg/dL, total cholesterol of 262 mg/dL, and HDL of 33 mg/dL. - Lipid goals: The target goals are a tr iglyceride level less than 150 mg/dL and an LDL level less than 130 mg/dL. - Risk reduction: The patient was counse led that severe hypertriglyceridemia poses a high risk for developing pancreatitis. - Dietary counseling: Extensive discussi on was held to differentiate cholesterol-rich foods from sugar/carbohydrates. - Lifestyle modification: Advised to severo id fried foods, fast foods, pork, beef, butter, margarine, and pastries, and to limit egg yolks to twice a week. - Imaging: Pending an ultrasound to eval uate previously elevated liver enzymes. Social History - Family History: The patient reports a family history of high cholesterol, noting that the patient's daughter and sister also have the condition. - Diet: The patient reports an effort to eat healthily, avoiding excessive grease, pernil, and [place] food, and eating fish. - Exercise: The patient reports attendin the gym for exercise. Results - Labs (03/30/2025): - Blood count: Normal. - Electrolytes: Normal. - Renal function: 1.01. - Hemoglobin A1c: Normal. - Liver function: Improved. - Lipid Panel: Total cholesterol 262 mg/ dL, Triglycerides 719 mg/dL, HDL 33 mg/dL. [facility] Medical History Overweight (BMI 25.0-29.9) Asthma Spondylolisthesis at L5-S1 level Thrombocytopenia Hypercholesterolemia Surgical History Hx of appendectomy Family History (Updated 03/28/25 @ 11:45 by Víctor Willingham MD) Father Substance use disorder Mother Liver cancer Social History Housing: Apartment Alcohol intake: former Patient Tobacco Use Status: Never used Tobacco Tobacco use type: Cigarette e-Cigarette/Vaping Use: Never Used Second Hand Smoke Exposure: No service: No Current occupational status: employed Current occupational exposures/hazards: No Cognitive needs: No Hearing needs: No Vision needs: No Questionnaire Thrive Questionnaire Date Thrive assessed: 08/09/24 I am a: Patient What is your living situation today?: I choose not to answer this question Within the past 12 months, did the food you bought not last and you didn't have the money to get more?: I choose not to answer this question Within the past 12 months, did you worry whether your food would run out before you got money to buy more?: I choose not to answer this question Do you have trouble paying for medicines?: I choose not to answer this question Do you have trouble getting transportation to medical appointments?: I choose not to answer this question Do you have trouble paying your heating and electricity bill?: I choose not to answer this question Do you have trouble taking care of your child, family member or friend?: I choose not to answer this question Do you have trouble with day-to-day activities such as bathing, preparing meals, shopping, managing finances, etc.?: I choose not to answer this question Are you currently unemployed and looking for a job?: I choose not to answer this question Are you interested in more education?: I choose not to answer this question Please select the resources that you would like help with: None Currently or been in a relationship where the following occur: I choose not to answer THRIVE Score: 0 ARLIN-7 AMB Questionnaire ARLIN-7 Date ARLIN - 7 assessed: 08/09/24 Source: Developed by Drs. Gold Rojas, Andra Odom, Trey Roach and colleagues, with an educational ju from [employer]. Review of Systems Narrative Review of Systems Physical exam (Primary Care) Vital Signs: Last Vital Signs Pulse 68 04/11/25 11:16 BP 114/70 04/11/25 11:16 Pulse Ox 98 04/11/25 11:16 Oxygen Delivery Method Room Air 04/11/25 11:16 BMI result Body Mass Index 26.1 Tobacco/Smoking Status: Tobacco use Status Tobacco use date assessed 01/26/25 04/11/25 11:17 Patient Tobacco Use Status Never used Tobacco 04/11/25 11:17 Tobacco use type Cigarette 04/11/25 11:17 e-Cigarette/Vaping Use Never Used 04/11/25 11:17 Thrive Assessment: Date of Thrive Assessment Date Thrive assessed 08/09/24 04/11/25 11:17 Currently or been in a relationship where the following occur: I choose not to answer Narrative Physical Exam Const General: alert; No acute distress Eyes Conjunctivae: conjunctivae normal Resp Auscultation: clear to auscultation bilaterally Cardio Rate: regular rate Rhythm: regular rhythm GI Inspection: Yes normal to inspection Extrem General: Yes normal to inspection and No edema Coding Level of Care Code Est Pt Level 4 (93593) Diagnoses Overweight (BMI 25.0-29.9) E66.3 Impaired fasting blood sugar R73.01 Hypertriglyceridemia E78.1 Assessment & Plan Assessment & Plan (1) Overweight (BMI 25.0-29.9): Code(s): E66.3 - Overweight Category: Medical Plan: Diet and exercise (2) Impaired fasting blood sugar: Code(s): R73.01 - Impaired fasting glucose Category: Medical Plan: Decrease the amount of carbohydrate intake, pasta, bread, rice and potatoes are all sugar and that is aside from all the sweet stuff, remember that fruits are good but they are Sweet also. (3) Hypertriglyceridemia: Code(s): E78.1 - Pure hyperglyceridemia Category: Medical Plan: Avoid fried foods, chicken skin, eggs, butter margarine, pastries and meat. Be it pork or beef they have a lot of cholesterol LDL goal of less than 130 and triglyceride of less than 150 Plan Plan Patient was informed and verbally consented to the use of an ambient scribe for clinic note documentation during this visit. 1. Severe Hypertriglyceridemia The patient's triglyceride level is critically high at 719 mg/dL, which significantly increases the risk for pancreatitis. Given the strong family history, a genetic component is suspected. The patient has agreed to start medication due to the high risk. A prescription for fenofibrate (Unildia) will be sent to the pharmacy. Extensive dietary counseling was provided to reduce intake of cholesterol-rich foods. A lab order is in place to repeat the lipid panel, which the patient may do as soon as tomorrow, with a scheduled recheck in three months. 2. Hypercholesterolemia The total cholesterol is elevated at 262 mg/dL with a low HDL of 33 mg/dL. The LDL was not calculable due to the severe hypertriglyceridemia. The prescribed fenofibrate, along with dietary changes and exercise, will also address hypercholesterolemia. We will monitor the response with a repeat lipid panel in 3 months. 3. Elevated Liver Enzymes The patient has a history of elevated liver numbers which are now improving. The patient is awaiting an appointment for a liver ultrasound for further evaluation. Discussion Notes I reviewed the patient's recent lab results, highlighting the critically elevated triglyceride level of 719 mg/dL and total cholesterol of 262 mg/dL. I explained that such high triglycerides pose a significant risk for acute pancreatitis, which is a more immediate concern than a heart attack for this specific lab abnormality. We discussed the likelihood of a genetic component given the family history of hyperlipidemia in the patient's sister and daughter. Due to the patient's concern and the level of risk, we mutually agreed to start medication immediately rather than waiting for a retest. I have prescribed fenofibrate (Unildia) and provided extensive dietary counseling, clarifying the difference between cholesterol-rich foods (e.g., fried foods, red meats, butter, egg yolks) and carbohydrates (e.g., rice, pasta, bread). I advised the patient on specific dietary limits, such as consuming no more than two egg yolks per week, and recommended continuing exercise to help raise HDL. I informed the patient that a lab order is available to recheck the labs on a fasting basis soon, and we will formally reassess with another lipid panel in three months. We also confirmed that the patient is pending an ultrasound to evaluate a prior history of elevated liver enzymes. Patient Instructions - Start taking the new prescription, fenofibrate (Unildia), as directed to lower your very high triglyceride levels. - Your triglyceride level of 719 is dangerously high and puts you at risk for pancreatitis, a serious inflammation of the pancreas. - Make significant changes to your diet by avoiding or strictly limiting fried foods, fast food, pork, beef, butter, margarine, pastries, and desserts. - Limit eating egg yolks to a maximum of two times per week. - Foods like rice, bread, and pasta are okay in small amounts, as they are sources of sugar, not cholesterol. - Continue to exercise, as this can help improve your good cholesterol (HDL). - A lab order is ready for you to get your cholesterol levels checked again soon. Please go for this blood test tomorrow after fasting (nothing to eat or drink except water). - You will need a follow-up blood test in 3 months to check your progress. - Please follow up on scheduling your liver ultrasound appointment. Orders: Orders Lipid Panel 3 Months E78.00 - Pure hypercholesterolemia, unspecified, E78.1 - Pure hyperglyceridemia Lipid Panel Today E78.00 - Pure hypercholesterolemia, unspecified Comprehensive Met. Panel 3 Months E78.1 - Pure hyperglyceridemia Medications: New fenofibrate 160 mg PO DAILY 30 tabs 3RF E78.1 - Pure hyperglyceridemia
--- OUTSIDE RECORDS SUMMARY | 2025-04-11 14:23 | XMS_ITS | Clinical Summary ---
Author Organization [facility] Address [address] [place] [phone] Phone Care Team Providers Care Leno Sewer Name Role Phone Víctor Willingham MD Primary Care Provider [phone] Allergies Active Allergy Reactions Criticality Noted Date [...] 09/13/2020, 08/22/2020 Adult Td,Tdap Booster 08/27/2026 08/27/2016 RSV VACCINE (1 - 1-dose 75+ series) 2046 HEPATITIS A VACCINES Aged Out No long [...] topic Medical Devices Not on file Insurance [place] [address] [place] [address] [place] [address] [place] [address] [place] [address] [place] [place] [address] [place] [id number] [employer] [facility] Care Teams Leno Sewer Relationship Specialty Start Date End Date Víctor Willingham MD [address] [place] [phone] PCP - General Internal Medicine 05/15/23 Additional Source Comments The information contained in this document represents components of the legal health record. It is not the complete legal health record.[facility]
== END 2025-04-11 12:10 | disposition home or self-care (01) ==
LOC: HO.HMCH 10:59
PROVIDERS: PCP Internal Medicine; Visit Provider Internal Medicine
DX: E66.3 Overweight (principal); R73.01 Impaired fasting glucose; E78.1 Pure hyperglyceridemia

== ENCOUNTER → 2025-04-11 10:58 | Outpatient (BNVA) | payer OTHER, SELFPAY | PROVIDERS: PCP Internal Medicine; Visit Provider Internal Medicine | DX: E66.3 Overweight (principal); R73.01 Impaired fasting glucose; E78.1 Pure hyperglyceridemia; Z83.438 Family history of other disorder of lipoprotein metabolism and other lipidemia; Z71.9 Counseling, unspecified | CPT/HCPCS: 99212 ==

== ENCOUNTER 2025-04-12 13:17 | Outpatient (REF) | payer OTHER, SELFPAY ==
--- OUTSIDE RECORDS SUMMARY | 2025-04-12 15:16 | XMS_ITS | Clinical Summary ---
Author Organization [facility] Address [address] [place] [phone] Phone Care Team Providers Care Wellness Assistant Name Role Phone Víctor Willingham MD Primary Care Provider [phone] Allergies Active Allergy Reactions Criticality Noted Date [...] topic Medical Devices Not on file [place] [address] [place] [address] [place] [place] [address] [place] [place] [address] [place] [address] [place] [address] [place] [address] [place] [address] [address] [place] [phone] [facility] ACO Care Teams Wellness Assistant Relationship Specialty Start Date End Date Víctor Willingham MD [address] [place] [phone] PCP - General Internal Medicine 05/15/23 Additional Source Comments The information contained in this document represents components of the legal health record. It is not the complete legal health record.[facility]
[2025-04-12 15:23] LABS: Alanine Aminotransferase 31 U/L (0-40); Albumin Level 4.8 g/dL (3.5-5.0); Alkaline Phosphatase 50 U/L (39-117); Anion Gap 11 (12-20); Aspartate Amino Transferase 29 U/L (5-37); Blood Urea Nitrogen 18 mg/dL (9-16); Calcium 9.6 mg/dL (8.4-10.2); Carbon Dioxide 30 mmol/L (22-29); Chloride 105 mmol/L (96-108); Cholesterol 214 mg/dL (<200); Estimated Glomerular Filt Rate > 60; HDL Cholesterol 48 mg/dL (>40); Potassium 4.2 mmol/L (3.3-5.1); Sodium 142 mmol/L (135-145); Total Protein 7.4 g/dL (6.5-8.0); Triglycerides 100 mg/dL (<150)
== END 2025-04-12 13:18 | disposition home or self-care (01) ==
LOC: HO.WFDLDS 13:17
PROVIDERS: Visit Provider Internal Medicine
DX: E78.2 Mixed hyperlipidemia (principal); R73.01 Impaired fasting glucose
CPT/HCPCS: 36415; 80053; 80061